=== PATIENT | female | born 1985 | race Caucasian/White ===

== ENCOUNTER 2017-07-22 13:45 | Emergency (ER) | payer BC, SELFPAY ==
[2017-07-22 13:46] VITALS: BP 135/74; PULSE 121; RESP 18; TEMP 36.6; O2SAT 99; BMI 25.6
--- NOTE | 2017-07-22 14:17 | ED.DCSUM_ITS ---
- ER Visit Summary Date of Service: 07/22/17 Chief Complaint: Constipation History of Present Illness: The patient is a 32 F presenting with constipation. Patient states she has been unable to have a bowel movement ?6 days. She has tried MiraLAX at home with no relief. She has nausea without vomiting. She complains of left-sided abdominal pain. Denies possibility of . She has had no fever. Denies urinary complaints. Denies other complaints. Physical Examination: Vitals are stable. Patient is afebrile. Alert no acute distress. HEENT exam is unremarkable. Neck is supple. Lungs are clear and equal bilaterally. Heart is regular rate and rhythm. Abdomen is soft mild left lower quadrant tenderness, no rebound or guarding Extremities are unremarkable. Skin is warm and dry. No focal neurologic deficit. Remainder of exam is unremarkable. Emergency Department Course and Treatment: KUB: Normal x-ray examination of the abdomen and pelvis. Patient was given a soap suds enema and had a small bowel movement. She is advised to continue Miralax. On repeat abdominal exam, she continues to have LLQ tenderness with no rebound or guarding. CT abd pelvis was obtained and shows mild pancolitis. She is given prescription for Augmentin. Advised to return to the ED for worsening complaints. Advised to follow up with PCP. Disposition: Discharge home Impression: Constipation, mild pancolitis This note was generated with [employer] dictation software. It may contain incorrect words, spelling, and punctuation that were not noted in review of the chart prior to signing ED Disposition - Plan for ED Patient: Chief Complaint: Constipation Instructions: ED Constipation Referrals: Bev Ross MD [Primary Care Provider] - NOT,DEFINED [NON-STAFF] -
--- NOTE | 2017-07-22 14:26 | RAD_ITS ---
STUDY: X-RAY - ABDOMEN/PELVIS REASON FOR EXAM: Female, 32 years old. Pain and nausea TECHNIQUE: Two AP supine views of the abdomen and pelvis. COMPARISON: None. FINDINGS: Normal visualized lung bases. There is an unremarkable bowel gas pattern. There is no demonstrated free abdominal air. The visualized liver, spleen and kidneys are grossly normal in size and morphology. Normal soft tissue structures. Normal visualized osseous structures. RAD/Abdomen Single View IMPRESSION: Normal x-ray examination of the abdomen and pelvis. Electronically Signed: Melecio Bautista MD at 15:07 EDT , Service support ,
--- NOTE | 2017-07-22 16:05 | ED.DEP ---
ED Disposition - Plan for ED Patient: Chief Complaint: Constipation Instructions: ED Constipation Referrals: NOT,DEFINED [NON-STAFF] - Bev Ross MD [Primary Care Provider] -
--- NOTE | 2017-07-22 16:18 | CT_ITS ---
STUDY: CT ABDOMEN AND PELVIS WITH CONTRAST REASON FOR EXAM: Female, 32 years old. Abdominal pain, constipation x 6 days, nausea. Prior ovarian cyst removal, fallopian tubes removed. RADIATION DOSAGE (If Supplied By Facility): CTDIvol = ( 9.70 ) mGy, DLP = ( 580.19 ) mGycm TECHNIQUE: Transaxial images were obtained from the dome of the diaphragm to the symphysis pubis without oral contrast. 100mL ml of Isovue 300 contrast was administered. Sagittal and coronal images were reconstructed. Individualized dose optimization techniques were used for this CT. COMPARISON: CT Abdomen/Pelvis Feb 12 2016 6:14pm FINDINGS: Right lower lobe scarring. The visualized portions of the heart are within normal limits. Stable hypodensity of the liver. This is in segment 6. Normal gallbladder and extrahepatic biliary system. Normal spleen. Normal pancreas. Normal bilateral adrenal glands. Normal right kidney. Normal left kidney. Normal visualized stomach. Normal small intestine. There is wall thickening of the entire colon. There is also questionable inflammation around the colon. This can suggest a colitis. The appendix is visualized and appears normal. Normal abdominal aorta. Normal inferior vena cava. Normal retroperitoneum. Normal urinary bladder. Normal visualized uterus. There are physiologic follicles of both ovaries. Normal abdominal wall. Normal osseous structures. CT/Abdomen/Pelvis W IV Cont ONLY IMPRESSION: Mild pancolitis. Electronically Signed: Solomon Lomeli MD at 17:40 EDT , Service support ,
[2017-07-22 16:30] VITALS: BP 132/84; PULSE 70; RESP 18; O2SAT 98
[2017-07-22] MEDS: 0.9% Normal Saline 1,000 ML 999 ML IV (16:31)
--- NOTE | 2017-07-22 17:56 | ED.DEP ---
ED Disposition - Plan for ED Patient: Chief Complaint: Constipation Instructions: ED Constipation Prescriptions: Amox/Clavulanate Tablet [Augmentin Tablet] 875 mg PO Q12H #20 tablet Referrals: Bev Ross MD [Primary Care Provider] - NOT,DEFINED [NON-STAFF] -
[2017-07-22 18:04] VITALS: BP 116/88; PULSE 106; RESP 16; O2SAT 99
[2017-07-22] MEDS: Amox/Clavulanate 875 MG Tablet PO (18:04)
== END 2017-07-22 18:07 | disposition home or self-care (01) ==
PROVIDERS: Emergency Provider Emergency Medicine; Family Provider Internal Medicine; PCP Internal Medicine
DX: K51.00 Ulcerative (chronic) pancolitis without complications (principal); K59.00 Constipation, unspecified
CPT/HCPCS: 74018; 74177; 96360; 96361; 99285; J7030; Q9967

== ENCOUNTER 2017-07-23 21:47 | Inpatient (IN) | payer BC, SELFPAY ==
[2017-07-23 21:48] VITALS: BP 119/87; PULSE 120; RESP 15; TEMP 37.5; O2SAT 96; BMI 25.4
--- NOTE | 2017-07-23 21:54 | NURSING ---
CALLED FOR EKG PER PROTOCAL, PULLED OLD EKG'S FOR
--- NOTE | 2017-07-23 22:00 | EKG12_ITS ---
Test Reason : CP Blood Pressure : / mmHG Vent. Rate : 115 BPM Atrial Rate : 115 BPM P-R Int : 122 ms QRS Dur : 084 ms QT Int : 322 ms P-R-T Axes : 080 049 026 degrees QTc Int : 445 ms Sinus tachycardia Nonspecific T wave abnormality Abnormal ECG Confirmed by NEFTALY RAO, SIMONE ([id number]), assignment desk editor DOROTEO LANDIN ([id number] on 07/25/2017 2:38:48 PM Referred By: ADRIEN Confirmed By:SIMONE HIGGINBOTHAM MD
--- NOTE | 2017-07-23 22:11 | ED.VISSUMM ---
- ER Visit Summary Date of Service: 07/23/17 Chief Complaint: Generalized abdominal pain and throbbing chest pain History of Present Illness: The patient is a 32 F who was seen yesterday and diagnosed with pancolitis. She was prescribed Augmentin since she has allergy to levofloxacin. She presents today because of worsening pain. She also complains of a throbbing intermittent pain in her chest. She does command subjective fever with chills. He denies sweats. She denies any ocular, visual auditory symptoms. She denies cough or difficulty breathing. She states she has not had a bowel movement in 7 days. She apparently was given a soapsuds enema. 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 She denies dysuria, frequency, urgency or hematuria. She has no history of renal ureterolithiasis. She states her right and left fallopian tube was removed because of complication to a procedure. She does have 2 children. There is no history of trauma. She denies any back pain. She denies any skin lesions. She denies myalgias arthralgias. Family history is remarkable for inflammatory bowel disorder i.e. Crohn's and ulcerative colitis. There is also strong family history of cholelithiasis. Physical Examination: Patient appears uncomfortable. Vital signs remarkable for heart rate of 120 and temperature 99.5. Head is atraumatic normocephalic. Pupils are equal round reactive. Extraocular muscles are intact. TMs are pearly white with landmarks noted. Nares patent with no drainage. Posterior pharynx without erythema or exudate. Uvula is midline. There is no dysphonia or dysphasia. Tongue and mucosa are dry. Trachea is midline. There is no stridor with auscultation of the neck. Heart is regular without murmur, gallop or rub. S1 and S2 are normal. Lungs are clear to auscultation with good movement of air bilaterally. Abdomen is tender with guarding and mild percussion tenderness. Bowel sounds are diminished. There is slight tympana. There is no CVA tenderness noted. Lower extremity exam is unremarkable. Neuro exam is nonfocal. Test Results: BC is unremarkable. Electric panels marked for CO2 of 10. To evaluate the CO2 of 10 and blood gas and lactate were ordered. Emergency Department Course and Treatment: IV was established she was treated with antiemetic and morphine for her disc comfort and nausea. She received 4.5 g of Zosyn and 1 L of normal saline. Repeat blood work was obtained. Since she was seen yesterday symptoms are worse she will in all likelihood require admission for IV antibiotics. Treatment Plan: Hospitalist Dr. Nunez was paged for admission for failed outpatient therapy of pancolitis Disposition: Admit MedSur Impression: 1. Pancolitis failed outpatient therapy 2. Sinus tachycardia documented on monitor 3. Dehydration This note was generated with [employer] dictation software. It may contain incorrect words, spelling, and punctuation that were not noted in review of the chart prior to signing ED Disposition - Plan for ED Patient: Chief Complaint: Chest Pain Referrals: Bev Ross MD [Primary Care Provider] -
[2017-07-23 22:17] LABS: Hematocrit 44.2 % (37-47); Hemoglobin 14.8 g/dl (12.0-15.0); Mean Corp Hgb Conc 33.5 g/gl (32-36); Mean Corpuscular Hgb 29.5 pg (27.0-32.0); Platelet Count 324 K/mm3 (150-450); RBC Distribution Width CV 12.7 % (11.6-14.6); RBC Distribution Width SD 40.6 fl (35.1-43.9); Red Blood Count 5.02 M/mm3 (4.2-5.4); White Blood Count 9.3 K/mm3 (4.4-11.0)
[2017-07-23 22:21] LABS: Scan Indicated on CBC? Y/N NO
[2017-07-23] MEDS: 0.9% Normal Saline 1,000 ML 1000 ML IV (22:27)
[2017-07-23] MEDS: Ondansetron 4 MG/2 ML Vial IV (22:28)
[2017-07-23] MEDS: Morphine 4 MG/ML Syringe IV (22:29)
[2017-07-23 22:32] LABS: Anion Gap 14 (5-15); BUN 8 mg/dL (7-18); BUN/Creat Ratio 10.4 RATIO (10-20); Calcium,Total 9.1 mg/dL (8.5-10.1); Chloride 111 mmol/L (98-107); Creatinine, Serum 0.77 mg/dL (0.55-1.02); EST Glomerular Filtration Rate 92 mL/min (>60); Est Glom Filt Rate - Afr Amer 111 mL/min (>60); Estimated Creatinine Clearance 77.68 ml/min; Glucose 76 mg/dL (74-106); Potassium 4.1 mmol/L (3.5-5.1); Sodium Level 135 mmol/L (136-145)
--- NOTE | 2017-07-23 22:50 | PCM.HP.STD ---
Problem List (1) Pancolitis Status: Acute (2) Metabolic acidosis Status: Acute (3) Hematemesis with nausea Status: Acute (4) History of pulmonary embolism Status: Resolved (5) Endometriosis Status: Chronic (6) Pneumonia Status: Acute History of Present Illness Date of Admission: 07/23/17 Chief Complaint: Abdominal pain for 2 days The patient is a 32 year old F with history of endometriosis came to ER yesterday with symptoms of abdominal pain. CT abdomen was done and shows mild pancolitis and was sent home on Augmentin. Patient also has fever and chills for last 2 days. She came with worsening abdominal pain, nausea and vomiting 3 times. First one had streak of blood second and third had small amount of blood with clots. Patient did not have bowel movement for 6 days. Patient denies any chronic abdominal pain or abdominal disorder. Her family, especially her father has colitis possible Crohn's disease. He also had polyps. In ED, her basic lab work showed bicarb of 10, chloride 111 and therefore ABG was done which shows pH 7.23. Lactic acid is pending. Past Medical History Past Medical History (Chronic Problems): Chronic Problems Endometriosis (Chronic) Allergies levofloxacin [From Levaquin] Adverse Reaction (Severe, Verified 07/23/17 22:05) Swelling Home Medications: Ambulatory Orders Medication Instructions Recorded Fluticasone 0.05% [Flonase Nasal 2 spray NASAL DAILY 08/16/16 [place]] Amox/Clavulanate Tablet [Augmentin 875 mg PO Q12H #20 tablet 07/22/17 Tablet] Surgical History: - - abcess tonsils, 1 week ago laproscoic surgery to remove fallopien tubes. wisdom teeth removed Smoking Status: Former smoker - *Family History Paternal History Items: - - Colon polyps and possible inflammatory bowel disease/Crohn's disease Review of Systems Constitutional: Reports: Chills, Fever, Weakness, Weight Change HEENT: Denies: Head Aches, Sinus Congestion, Sinus Drainage Cardiovascular: Denies: Chest Pain, Palpitations Respiratory: Denies: Cough, Shortness of breath at rest, Sputum production Gastrointestinal: Reports: Abdominal Pain, Constipation, Hematemesis, Nausea, Vomiting. Denies: Diarrhea, Melena Genitourinary: Denies: Dysuria Musculoskeletal: Denies: Joint Pain, Joint Tenderness Skin: Denies: Rash, Wounds Neurological: Denies: Numbness, Tingling, Focal weakness Psychiatric: Denies: Anxiety, Depression, Homicidal Ideations, Suicidal Ideations Hematologic/ Lymphatic: Denies: Easy Bruising, Easy Bleeding VTE Information - Inpt Only VTE Present on Admission: No VTE Mechan Device Prophylaxis: None VTE Pharm Prophylaxis ordered?: No Reason prophylaxis not ordered:: Procedure Not Indicated Patient Problems: Active and Suspected Problems Pancolitis (Acute) Metabolic acidosis (Acute) Hematemesis with nausea (Acute) - Physical Exam General: Alert, Oriented x3, Cooperative HEENT: Atraumatic, PERRLA, EOMI, Normocephalic Oral: Dry Mucosa Neck: Supple, No JVD, Negative Carotid Bruits Lungs: Clear to auscultation, Normal air movement, No rhonchi, No wheeze Cardiovascular: Regular Rhythm, Normal S1, Normal S2, No murmurs, Tachycardic Abdomen: Bowel Sounds Present, Soft, Hypoactive Bowel Sounds, Guarding - Mild guarding left upper quadrant, Tender Extremities: No edema, Capillary Refill Less than 3 Seconds Skin: No rashes, No breakdown Musculoskeletal: No Tenderness to Palpation of Joints or Extremities Neurological: Cranial nerves II-XII grossly intact Psych/Mental Status: Normal Affect, Appropriate Vital Signs Temp Pulse Resp BP Pulse Ox 99.5 F H 120 H 15 119/87 H 96 07/23/17 21:48 07/23/17 21:48 07/23/17 21:48 07/23/17 21:48 07/23/17 21:48 Oxygen Delivery Method Room Air Weight: 135 lb Body Mass Index (BMI) 25.4 Laboratory Tests Past 24 Hrs 07/23/17 07/23/17 22:11 22:11 WBC 9.3 RBC 5.02 Hgb 14.8 Hct 44.2 MCV 88.0 MCH 29.5 MCHC 33.5 RDW 12.7 RDW Differential 40.6 Plt Count 324 MPV 10.0 Sodium 135 L Potassium 4.1 Chloride 111 H Carbon Dioxide 10.0 L Anion Gap 14 BUN 8 Creatinine 0.77 Estim Creat Clear Calc 77.68 Est GFR (MDRD) Af Amer 111 Est GFR (MDRD) Non-Af 92 BUN/Creatinine Ratio 10.4 Glucose 76 Calcium 9.1 Assessment/Plan Active and Suspected Problems Pancolitis (Acute) Metabolic acidosis (Acute) Hematemesis with nausea (Acute) The patient is a 32 year old F with history of endometriosis came to ER yesterday with symptoms of abdominal pain. CT abdomen was done and shows mild pancolitis and was sent home on Augmentin. She came with worsening abdominal pain, nausea and vomiting 3 times. First wanting had streak of blood second and third had small amount of blood with clots. Patient did not have bowel movement for 6 days. Patient denies any chronic abdominal pain or abdominal disorder. Her family, especially her father has colitis possible Crohn's disease. He also had polyps. In ED, her basic lab work showed bicarb of 10, chloride 111 and therefore ABG was done which shows pH 7.23. Lactic acid is pending. 1. Acute metabolic acidosis most probably secondary to pancolitis: Patient is being admitted in PCU for intense hemodynamic monitoring. IV fluid normal saline 2 L bolus and then 500 bolus and then 125 mL/h. Strict I and O's. Lactic acid. Repeat CMP, PT/INR ordered. Blood cultures ?2, UA and urine culture ordered. 2. Pancolitis: It seems mainly infectious. On IV Zosyn. Patient is allergic to Levaquin. 2. Other comorbidities include history of endometriosis and history of pulmonary embolism: Patient not on any blood thinners. DVT prophylaxis: Patient has a history of hematemesis and left lower pulmonary embolism. Currently patient is having upper GI bleed and so pharmacological prophylaxis contracted. Bilateral SCDs. Laboratory Results 07/23/17 22:11: WBC 9.3, RBC 5.02, Hgb 14.8, Hct 44.2, MCV 88.0, MCH 29.5, MCHC 33.5, RDW 12.7, RDW Differential 40.6, Plt Count 324, MPV 10.0 07/23/17 22:11: Sodium 135 L, Potassium 4.1, Chloride 111 H, Carbon Dioxide 10.0 L, Anion Gap 14, BUN 8, Creatinine 0.77, Estim Creat Clear Calc 77.68, Est GFR (MDRD) Af Amer 111, Est GFR (MDRD) Non-Af 92, BUN/Creatinine Ratio 10.4, Glucose 76, Calcium 9.1 07/23/17 22:54: Specimen Type ART, Sample Site L Radial, pH 7.23 L, Bicarbonate Actual 8.9 L, POC Total CO2 10, Base Excess -19 L, O2 Saturation 97, ABG pCO2 21.4 L, ABG pO2 106 H, Brandt Test POS, O2 Delivery Device Room Air, Blood Gas Notified Whom ED , Blood Gas Notified Time 23007/23/17 23:15: Lactic Acid Pending Code Visit Inpatient E&M: 64091 Init Hosp L3
[2017-07-23 23:00] LABS: Allen Test POS; Base Excess -19 mmol/L (-2 to +2); Bicarbonate 8.9 mmol/L (22-26); Blood Gas Specimen Type ART; O2 Delivery Device Room Air; PO2 106 mmHG (75-100); SITE L Radial; SO2 97 % (95-99); Time Given 2300; Total Carbon Dioxide 10 mmol/L; pCO2 21.4 mmHg (35-45); pH 7.23 (7.35-7.45)
[2017-07-23 23:22] VITALS: BMI 25.4; BMI 25.5
[2017-07-23 23:25] VITALS: BP 126/89; PULSE 99; RESP 21; TEMP 36.9; O2SAT 100
[2017-07-23 23:27] VITALS: BP 126/89; PULSE 99; RESP 21; TEMP 36.9; O2SAT 98
[2017-07-24] VITALS (12 sets, daily range): BP systolic 103–118; BP diastolic 49–76; PULSE 76–100; RESP 16–22; TEMP 36.6–37.2; O2SAT 100
[2017-07-24 00:01] LABS: Lactic Acid 0.9 mmol/L (0.4-2.0)
[2017-07-24 01:24] LABS: International Normalized Ratio 1.2; Prothrombin Time (Protime)PT. 14.8 SECONDS (11.7-14.9)
[2017-07-24 01:25] LABS: Partial Thromboplast Time 36.4 Seconds (24.1-36.2)
[2017-07-24] MEDS: 0.9% Normal Saline 1,000 ML 500 ML IV ×2 (01:49→03:00)
[2017-07-24 02:12] LABS: ALB/GLOB Ratio 1.1 RATIO (0.9-2.4); AST(SGOT) 10 U/L (15-37); Alanine Aminotransfer ALT/SGPT 12 U/L (13-56); Albumin, Serum 3.8 g/dL (3.2-5.0); Alkaline Phosphatase 57 U/L (45-117); Anion Gap 13 (5-15); BUN 6 mg/dL (7-18); BUN/Creat Ratio 8.8 RATIO (10-20); Calcium,Total 8.1 mg/dL (8.5-10.1); Chloride 114 mmol/L (98-107); Creatinine, Serum 0.68 mg/dL (0.55-1.02); EST Glomerular Filtration Rate 105 mL/min (>60); Est Glom Filt Rate - Afr Amer 127 mL/min (>60); Estimated Creatinine Clearance 87.97 ml/min; Globulin 3.5 g/dL (2.2-4.2); Glucose 65 mg/dL (74-106); Lipase 113 U/L (73-393); Magnesium 1.6 mg/dL (1.6-2.6); Potassium 4.2 mmol/L (3.5-5.1); Protein, Total 7.3 g/dL (6.4-8.2); Sodium Level 137 mmol/L (136-145)
[2017-07-24 02:13] LABS: Bacteria 0 SEEN /hpf (None Seen); Mucous, Urine 0 SEEN /hpf (<or=2+); Red Blood Cells-Urine 0 SEEN /hpf (0-5); White Blood Cells 0 SEEN /hpf (0-5)
[2017-07-24 03:44] LABS: Color, Urine Straw (Yellow); Glucose, Dipstick Normal (Normal); Leukocyte Esterase-Dipstick Negative /ul (Negative); Nitrite-Dipstick Negative (Negative); Occult Blood-Urine Negative /ul (Negative); Protein-Dipstick Negative (Negative); Urine Bilirubin Dipstick Negative (Negative); Urine Clarity Clear (Clear); Urine Urobilinogen Normal (Normal)
[2017-07-24 04:01] LABS: Ketone-Dipstick 150 mg/dl (Negative)
[2017-07-24 04:11] LABS: Squamous Epithelial Cells - UA 5-10 SEEN /hpf (5-10)
[2017-07-24] MEDS: Ondansetron 4 MG/2 ML Vial IV (05:06)
[2017-07-24] MEDS: 0.9% Normal Saline 1,000 ML 150 ML IV ×2 (05:06→09:47)
[2017-07-24] MEDS: Piperacil/Tazobactam 3.375 GM/50 ML ML IV (05:17)
[2017-07-24 05:46] LABS: Hematocrit 35.2 % (37-47); Hemoglobin 11.9 g/dl (12.0-15.0); Mean Corp Hgb Conc 33.8 g/gl (32-36); Mean Corpuscular Hgb 30.2 pg (27.0-32.0); Mean Corpuscular Volume 89.3 fL (81-99); Mean Platelet Vol. 10.1 fl (6.2-12.0); Platelet Count 265 K/mm3 (150-450); RBC Distribution Width CV 12.6 % (11.6-14.6); RBC Distribution Width SD 40.8 fl (35.1-43.9); Red Blood Count 3.94 M/mm3 (4.2-5.4)
[2017-07-24 05:51] LABS: Scan Indicated on CBC? Y/N NO
--- NOTE | 2017-07-24 08:41 | CASEMGMT ---
According to [facility] website, the following are in-network tertiary facilities: [facility], [place], , [place], [facility], [facility], [facility], and . Marcos CHONG CM
--- NOTE | 2017-07-24 08:59 | PCM.DC ---
- Discharge Diagnoses Current Active Problems: Current Active and Chronic Problems Pancolitis (Acute) Metabolic acidosis (Acute) Hematemesis with nausea (Acute) Reason(s) for Visit for Discharge Instructions: Abdominal pain, nausea, vomiting Allergies/Adverse Reactions: [facility] Adverse Reaction (Severe, Verified 07/23/17 22:05) Swelling Medications to take at Discharge Fluticasone 0.05% [Flonase Nasal [place]] 2 spray NASAL DAILY 08/16/16 Amox/Clavulanate Tablet [Augmentin Tablet] 875 mg PO Q12H #20 tablet 07/22/17 Primary Care Physician: Bev Ross MD [Primary Care Provider] - Proposed Discharge Date: 07/24/17
--- NOTE | 2017-07-24 09:01 | DS.PCM_ITS ---
Discharge Date and Diagnosis Date of Admission: 07/23/17 Date of Discharge: 07/24/17 - Primary Discharge Diagnosis Active and Suspected Problems Pancolitis (Acute) Metabolic acidosis (Acute) Hematemesis with nausea (Acute) - Secondary Discharge Diagnosis Chronic Problems Endometriosis (Chronic) Hospital Course and Treatment General surgery Operations: None Procedures: None Summary of Care Provided: The patient is a 32 year old F with past medical history of endometriosis comes in to the hospital with complaints of generalized abdominal pain and nausea and vomiting as well as hematemesis. Patient has a positive family history of Crohn 's disease in her father. Patient was seen in the ED earlier on and diagnosed with mild pancolitis and discharged on Augmentin. She was unable to keep down any food and had associated fever and chills. She was admitted to the hospital , managed conservatively with IV fluids and IV PPI as well as IV zosyn. General surgery was consulted and recommended transfer to a facility as we did not have any gastroenterology in-house. She was accepted by [facility] and subsequently transferred. Discharge Diet: No Restrictions Discharge Activity: Return to Normal Activity Home Medications: Medications to take at Discharge Fluticasone 0.05% [Flonase Nasal [place]] 2 spray NASAL DAILY 08/16/16 Amox/Clavulanate Tablet [Augmentin Tablet] 875 mg PO Q12H #20 tablet 07/22/17 Primary Care Physician: Bev Ross MD [Primary Care Provider] - Disposition: Acute care Hospital Minutes spent on discharge:: 50 Patient Condition:: Stable Medical Necessity - Tobacco Use Smoking Status: Former smoker Tobacco Use: Secondhand Meaningful Use Info Meaningful Use Diagnoses (Choose all that apply): None applicable Code Visit Inpatient E&M: 25930 Disch Hosp
== END 2017-07-24 10:56 | disposition other institution (70) | DRG 386 ==
LOC: ED 22:07 → MS3 23:02 → PCU 23:24
PROVIDERS: Admitting Provider Internal Medicine; Emergency Provider Emergency Medicine; Family Provider Internal Medicine; PCP Internal Medicine; Visit Provider Internal Medicine
DX: K51.018 Ulcerative (chronic) pancolitis with other complication (principal); K92.0 Hematemesis; E87.2 Acidosis; E86.0 Dehydration; Z87.891 Personal history of nicotine dependence; Z79.2 Long term (current) use of antibiotics; Z86.711 Personal history of pulmonary embolism; R00.0 Tachycardia, unspecified; N80.9 Endometriosis, unspecified
CPT/HCPCS: 36415; 36600; 80048; 80053; 81001; 82803; 83605; 83690; 83735; 85027; 85610; 85730; 87040; 87086; 93005; 99285; J7030; J7040; A4216; J2405

== ENCOUNTER 2018-05-05 14:10 | Emergency (ER) | payer BC, SELFPAY ==
[2018-05-05 14:11] VITALS: BP 124/79; PULSE 112; RESP 20; TEMP 37.3; O2SAT 99; BMI 19.3
[2018-05-05 14:28] VITALS: BP 135/61; PULSE 114; RESP 18; O2SAT 99
--- NOTE | 2018-05-05 14:41 | EKG12_ITS ---
Test Reason : COUGH Blood Pressure : / mmHG Vent. Rate : 099 BPM Atrial Rate : 099 BPM P-R Int : 124 ms QRS Dur : 088 ms QT Int : 348 ms P-R-T Axes : 080 040 048 degrees QTc Int : 446 ms Normal sinus rhythm Normal ECG Confirmed by SIMONE HIGGINBOTHAM MD ([id number]), editor greeting card DOROTEO LANDIN ([id number]) on 05/08/2018 8:28:40 AM Referred By: ERIC Confirmed By:SIMONE HIGGINBOTHAM MD
--- NOTE | 2018-05-05 14:41 | RAD_ITS ---
STUDY: X-RAY CHEST REASON FOR EXAM: Female, 33 years old. Shortness of breath positive flu test. TECHNIQUE: PA and lateral views of the chest. COMPARISON: March 07, 2016 chest x-ray FINDINGS: There is nonspecific hyperinflation of the lungs. There is no demonstrated pleural abnormality. Normal size heart. Normal mediastinum and [place]. Normal visualized pulmonary arteries. Normal visualized aortic arch and descending thoracic aorta. Normal visualized thoracic spine. Normal visualized ribs, clavicles, and shoulders. There is no demonstrated abnormality of the visualized soft tissue structures of the upper abdomen. RAD/Chest PA and Lateral IMPRESSION: Nonspecific hyperinflation of the lungs no evidence of acute focal infiltrate. Electronically Signed: Yisel Schroeder MD at 15:25 EST Tel , Service support ,
--- NOTE | 2018-05-05 14:45 | ED.DCSUM_ITS ---
- ER Visit Summary Date of Service: 05/05/18 Chief Complaint: Vomiting and chest burning History of Present Illness: The patient is a 33 F diagnosed with influenza yesterday who presents for vomiting with blood and chest burning. Patient states she began feeling unwell 1 week ago, with fever, cough, body aches, headache and respiratory-like symptoms. For the last 2 days she has been having a burning sensation in her chest, both sides in the upper chest. She also has felt short of breath. Patient was evaluated by her family doctor and diagnosed with influenza. She was prescribed Tamiflu but had not started it yet. She began vomiting last night, and states she has vomited approximately 10 times. For the last several episodes of emesis, patient has noted blood clots or blood streaking in the emesis. She denies urinary symptoms, diarrhea. She does have a history of a pulmonary embolism that occurred after a fallopian tube surgery a few years ago. Physical Examination: Vital signs: afebrile, hemodynamically stable, no hypoxia on room air General: well nourished, well developed, in no distress Skin: warm, dry, no rash, no pallor HEENT: normocephalic and atraumatic; PERRL, EOMI, moist mucous membranes Cardiovascular: Tachycardic rate and rhythm without murmurs, no peripheral edema, 2+ pulses all distal extremities Respiratory: No increased work of breathing but increased discomfort with deep breath, lungs are clear to auscultation bilaterally, no rales, rhonchi or wheezing Abdominal: Abdomen is soft, left upper quadrant is mildly tender with normoactive bowel sounds, no guarding or rebound, no masses MSK: Moves all extremities, no deformities, normal strength Neuro: Awake and alert, oriented ?4. No facial droop, sensation and motor function intact and symmetric Test Results: Abnormal Lab Results 05/05/18 05/05/18 05/05/18 14:52 14:52 14:52 WBC 2.6 L RBC 5.01 Hgb 14.9 Hct 44.4 MCV 88.6 MCH 29.7 MCHC 33.6 RDW 13.0 RDW Differential 42.2 Plt Count 194 MPV 9.6 Immature Gran % (Auto) 0.000 Neut % (Auto) 68.8 Lymph % (Auto) 12.9 L Hardeman % (Auto) 17.9 H Eos % (Auto) 0.0 Baso % (Auto) 0.4 Absolute Neuts (auto) 1.8 L Absolute Lymphs (auto) 0.34 L Total Counted Not Reportable Differential Comment Diff Path Review May foll Platelet Estimate ADEQUATE RBC Morphology NORM C+C D-Dimer Quant (PE/DVT) 0.29 Sodium 138 Potassium 3.7 Chloride 108 H Carbon Dioxide 15.0 L Anion Gap 15 BUN 10 Creatinine 0.67 Estim Creat Clear Calc 85.60 Est GFR (MDRD) Af Amer 129 Est GFR (MDRD) Non-Af 107 BUN/Creatinine Ratio 15.0 Glucose 78 Calcium 8.3 L Total Bilirubin 0.40 AST 26 ALT 25 Alkaline Phosphatase 60 Troponin I < 0.015 Total Protein 7.9 Albumin 4.0 Globulin 3.9 Albumin/Globulin Ratio 1.0 Lipase 59 L Clinical Impression(s) from Imaging Studies Chest X-Ray 05/05/18 14:41 IMPRESSION: Nonspecific hyperinflation of the lungs no evidence of acute focal infiltrate. Electronically Signed: Yisel Schroeder MD at 15:25 EST Tel , Service support , Medications Given Discontinued Medications Albuterol/Ipratropium (Duoneb) 3 ml INHALATION X1 ONE Stop: 05/05/18 15:49 Sodium Chloride () 1,000 mls @ 1,000 mls/hr IV .Q1H ONE Stop: 05/05/18 15:39 Last Admin: 05/05/18 14:58 Dose: 1,000 mls/hr Ketorolac Tromethamine (Toradol) 15 mg IV X1 ONE Stop: 05/05/18 14:41 Last Admin: 05/05/18 14:58 Dose: 15 mg Ondansetron HCl (Zofran) 4 mg IV X1 ONE Stop: 05/05/18 14:41 Last Admin: 05/05/18 14:58 Dose: 4 mg Emergency Department Course and Treatment: Patient presents for vomiting with some blood in the emesis since last night. Patient states the blood was not in the initial emesis, and she has had no purely bloody emesis. This sounds more consistent with a Aleah-Conroy tear rather than a daniel GI bleed. Because patient has the chest burning in the shortness of breath with flu, chest x-ray was performed to evaluate for pneumonia. D-dimer included given the history of pulmonary embolism. Patient is moderate risk for Wells criteria and thus d- dimer evaluation is appropriate. D-dimer was within normal limits. Labs showed a white count of 2.6, no neutrophil predominance, no electrolyte derangements. Chest x-ray showed no sign of pneumonia. Patient received IV fluids, Zofran and Toradol for symptomatic relief. On reevaluation patient states she is comfortable, has had no further nausea or vomiting, and the chest discomfort is mostly relieved with the medicine. Patient given one duoneb to see if it helps with subjective. respiratory effort and cough. Discussed that since patient has been sick for multiple days, starting Tamiflu at this point would be very unlikely to help, and would likely make her nausea and vomiting worse. Patient agreed and will not take the Tamiflu. Patient states she felt much better after the breathing treatment and this is the most comfortable she has been since she got sick last weekend. Patient was given a prescription for albuterol inhaler, Tessalon Perles for cough, and Zofran for any further nausea or vomiting. She has not had any episodes of emesis in the emergency department and no hematemesis. Patient will return if any further concerns. Discharged home in improved condition. Treatment Plan: [] Disposition: [] Impression: Influenza This note was generated with [employer] dictation software. It may contain incorrect words, spelling, and punctuation that were not noted in review of the chart prior to signing ED Disposition - Plan for ED Patient: Prescriptions: Albuterol Inhaler [Ventolin Hfa] 2 puff INHALATION Q4H PRN PRN #1 inhaler PRN Reason: Wheezing Ondansetron [Zofran Odt] 4 mg PO Q8H PRN PRN #10 tab PRN Reason: Nausea Benzonatate [Tessalon Perle] 100 mg PO TID PRN PRN #20 cap PRN Reason: Cough Referrals: Bev Ross MD [STAFF PHYSICIAN] -
[2018-05-05] MEDS: Ketorolac 15 MG/ML Vial IV (14:58)
[2018-05-05] MEDS: Ondansetron 4 MG/2 ML Vial IV (14:58)
[2018-05-05] MEDS: 0.9% Normal Saline 1,000 ML 1000 ML IV (14:58)
[2018-05-05 15:04] LABS: Absolute Lymphocyte Count 0.34 X10^3/ul (0.83-4.51); Absolute Neutrophil Count 1.8 X10^3/uL (2.0-7.7); Basophil# 0.01 X10^3/uL; Basophil% 0.4 % (0-1); Hematocrit 44.4 % (37-47); Hemoglobin 14.9 g/dl (12.0-15.0); Lymphocyte # 0.34 X10^3/ul (4.0); Lymphocyte % 12.9 % (19-41); Mean Corp Hgb Conc 33.6 g/gl (32-36); Mean Corpuscular Hgb 29.7 pg (27.0-32.0); Mean Corpuscular Volume 88.6 fL (81-99); Mean Platelet Vol. 9.6 fl (6.2-12.0); Monocyte# 0.47 X10^3/uL; Monocyte% 17.9 % (0-10); Neutrophil # 1.81 X10^3/uL (2.7-7.7); Neutrophil % 68.8 % (47-70); Platelet Count 194 K/mm3 (150-450); RBC Distribution Width SD 42.2 fl (35.1-43.9); Red Blood Count 5.01 M/mm3 (4.2-5.4); White Blood Count 2.6 K/mm3 (4.4-11.0)
[2018-05-05 15:06] LABS: Differential Indicated SCAN CRITERIA MET; POSITIVE COUNT NO; POSITIVE DIFFERENTIAL YES; POSITIVE MORPHOLOGY NO
[2018-05-05 15:21] LABS: Platelet Estimate ADEQUATE (ADEQ); Red Cell Morphology NORM C+C NORMAL (NORM C&C)
[2018-05-05 15:29] LABS: AST(SGOT) 26 U/L (15-37); Alanine Aminotransfer ALT/SGPT 25 U/L (13-56); Alkaline Phosphatase 60 U/L (45-117); Anion Gap 15 (5-15); BUN 10 mg/dL (7-18); Calcium,Total 8.3 mg/dL (8.5-10.1); Chloride 108 mmol/L (98-107); Creatinine, Serum 0.67 mg/dL (0.55-1.02); EST Glomerular Filtration Rate 107 mL/min (>60); Est Glom Filt Rate - Afr Amer 129 mL/min (>60); Globulin 3.9 g/dL (2.2-4.2); Glucose 78 mg/dL (74-106); Lipase 59 U/L (73-393); Potassium 3.7 mmol/L (3.5-5.1); Protein, Total 7.9 g/dL (6.4-8.2); Sodium Level 138 mmol/L (136-145)
[2018-05-05 15:37] LABS: D-Dimer Quantitative (DVT/PE) 0.29 FEU/ug/m (0.27-0.49)
[2018-05-05 16:04] VITALS: PULSE 100; RESP 16
[2018-05-05] MEDS: Ipratropium/Albuterol Sulfate 3 ML AMPUL.NEB INHALATION (16:04)
--- NOTE | 2018-05-05 16:35 | ED.DEP ---
ED Disposition - Plan for ED Patient: Disposition: Home or Assisted Living Instructions: ED Flu Prescriptions: Albuterol Inhaler [Ventolin Hfa] 2 puff INHALATION Q4H PRN PRN #1 inhaler PRN Reason: Wheezing Ondansetron [Zofran Odt] 4 mg PO Q8H PRN PRN #10 tab PRN Reason: Nausea Benzonatate [Tessalon Perle] 100 mg PO TID PRN PRN #20 cap PRN Reason: Cough Referrals: Bev Ross MD [STAFF PHYSICIAN] - 3-5 Days if not improving Additional Instructions: Use the ondansetron as needed for nausea or vomiting. Use the albuterol as needed for wheezing and cough. The Tessalon Perles also will help with cough. Do not take the Tamiflu, as it is highly unlikely to help at this point and frequently causes nausea and vomiting. If you have any worsening of your condition or any new concerning symptoms, please return immediately to the emergency department for another evaluation.
[2018-05-05 16:45] VITALS: BP 136/96; PULSE 100; RESP 18; O2SAT 99
--- NOTE | 2018-05-05 16:45 | ED.RN ---
IV DC'ED, CATHETER INTACT, SMALL GAUZE DRESSING PLACED. DISCHARGE INSTRUCTIONS GIVEN TO AND REVIEWED WITH PATIENT, PATIENT DENIES QUESTIONS OR CONCERNS AND VOICES UNDERSTANDING OF DISCHARGE INSTRUCTIONS. PT AMBULATES OUT OF ROOM WITHOUT DIFFICULTY.
[2018-05-07 13:54] LABS: Pathologist Review Reviewed
== END 2018-05-05 17:09 | disposition home or self-care (01) ==
PROVIDERS: Emergency Provider Emergency Medicine; Family Provider Family Medicine; PCP Family Medicine
DX: J11.1 Influenza due to unidentified influenza virus with other respiratory manifestations (principal); Z86.711 Personal history of pulmonary embolism; Z87.01 Personal history of pneumonia (recurrent)
CPT/HCPCS: 71046; 80053; 83690; 84484; 85025; 85379; 93005; 94640; 96361; 96374; 96375; 99284; J7030; A4216; J2405

== ENCOUNTER 2018-05-07 12:23 | Emergency (ER) | payer BC, SELFPAY ==
[2018-05-07 12:24] VITALS: BP 145/76; PULSE 108; RESP 16; TEMP 37.3; O2SAT 99; BMI 19.0
[2018-05-07 12:32] VITALS: TEMP 37.3
--- NOTE | 2018-05-07 12:42 | RAD_ITS ---
STUDY: X-RAY CHEST REASON FOR EXAM: Female, 33 years old. 4 day history of productive cough and generalized illness. TECHNIQUE: PA and lateral views of the chest. COMPARISON: Comparison is made with prior study dated May 05, 1999. FINDINGS: Hyperinflation. Scattered calcified granulomas. The lungs are clear. There is no demonstrated pleural abnormality. Normal size heart. Normal mediastinum and kaleigh. Normal visualized pulmonary arteries. Normal visualized aortic arch and descending thoracic aorta. Normal visualized thoracic spine. Normal visualized ribs, clavicles, and shoulders. There is no demonstrated abnormality of the visualized soft tissue structures of the upper abdomen. RAD/Chest PA and Lateral IMPRESSION: Hyperinflation. No acute abnormality is seen. Electronically Signed: Ramo Sheridan MD at 13:37 EST , Service support ,
--- NOTE | 2018-05-07 12:45 | ED.VISSUMM ---
- ER Visit Summary Date of Service: 05/07/18 Chief Complaint: Cough History of Present Illness: The patient is a 33 F past medical history endometriosis and reflux. States she was diagnosed with influenza on Monday by her primary care physician. She is now had a productive cough of greenish sputum. Developed nausea, vomiting diarrhea states she feels dehydrated. Fevers been as high as 101. No dysuria. Physical Examination: Well-appearing 33-year-old female. No acute distress. Vital signs are stable. Temperature 99. She does not look septic or toxic. She looks mildly dehydrated. HEENT exam TMs normal. Posterior pharynx without erythema or exudate. Mildly dry mucous membranes. Neck nontender no lymphadenopathy. Lungs clear to auscultation bilaterally. Dry cough. Heart regular rhythm rate about 110 no murmur. Abdomen is soft and nontender. Normal bowel sounds no peritoneal signs. Nondistended. She is moving all 4 extremities. They are neurovascularly intact. Neurologically she is awake alert with no focal motor deficits. Test Results: Chest x-ray 2 views show no acute abnormality. No infiltrate. Emergency Department Course and Treatment: Patient treated with a liter normal saline. IV Zofran. P.o. fluid challenge. Repeat exam patient is doing well. Will be discharged to home. Treatment Plan: Fluids and rest. Zofran as needed for nausea which she has at home. Follow-up with not improving. Disposition: Discharge Impression: Acute viral syndrome Mild dehydration This note was generated with [employer] dictation software. It may contain incorrect words, spelling, and punctuation that were not noted in review of the chart prior to signing ED Disposition - Plan for ED Patient: Referrals: Carlos Villareal MD [Primary Care Provider] -
[2018-05-07] MEDS: Ondansetron 4 MG/2 ML Vial IV (12:57)
[2018-05-07] MEDS: 0.9% Normal Saline 1,000 ML 1000 ML IV (12:57)
--- NOTE | 2018-05-07 13:24 | ED.DEP ---
ED Disposition - Plan for ED Patient: Disposition: Home or Assisted Living Instructions: ED Viral Syndrome Referrals: Carlos Villareal MD [Primary Care Provider] - 3-5 Days if not improving Additional Instructions: Plenty of fluids and rest. Your home Zofran as needed for nausea. Follow-up with not improving. Her chest x-ray was normal. No signs of pneumonia.
[2018-05-07 13:39] VITALS: TEMP 37.2
[2018-05-07] MEDS: proMETHazine 25 MG/ML Syringe 12.5 MG IV (13:40)
== END 2018-05-07 14:05 | disposition home or self-care (01) ==
PROVIDERS: Emergency Provider Emergency Medicine; Family Provider Family Medicine; PCP Family Medicine
DX: B34.9 Viral infection, unspecified (principal); E86.0 Dehydration; K21.9 Gastro-esophageal reflux disease without esophagitis; Z79.51 Long term (current) use of inhaled steroids; Z79.899 Other long term (current) drug therapy
CPT/HCPCS: 71046; 96361; 96374; 96375; 99283; J7030; J2405

== ENCOUNTER → 2018-05-22 15:57 | Outpatient (CLI) | payer BC, SELFPAY ==
[2018-05-07 12:24] VITALS: BMI 19.0
[2018-05-22 17:40] LABS: Absolute Lymphocyte Count 2.71 X10^3/ul (0.83-4.51); Absolute Neutrophil Count 2.7 X10^3/uL (2.0-7.7); Basophil# 0.02 X10^3/uL; Basophil% 0.3 % (0-1); Eosinophil# 0.03 X10^3/uL; Eosinophils% 0.5 % (0-5); Hematocrit 41.2 % (37-47); Hemoglobin 14.1 g/dl (12.0-15.0); Lymphocyte # 2.71 X10^3/ul (4.0); Lymphocyte % 45.5 % (19-41); Mean Corp Hgb Conc 34.2 g/gl (32-36); Mean Corpuscular Hgb 29.8 pg (27.0-32.0); Mean Corpuscular Volume 87.1 fL (81-99); Mean Platelet Vol. 11.6 fl (6.2-12.0); Monocyte# 0.53 X10^3/uL; Monocyte% 8.9 % (0-10); Neutrophil # 2.66 X10^3/uL (2.7-7.7); Neutrophil % 44.6 % (47-70); POSITIVE COUNT NO; POSITIVE DIFFERENTIAL NO; POSITIVE MORPHOLOGY NO; Platelet Count 350 K/mm3 (150-450); RBC Distribution Width CV 12.9 % (11.6-14.6); RBC Distribution Width SD 39.8 fl (35.1-43.9); Red Blood Count 4.73 M/mm3 (4.2-5.4)
[2018-05-22 17:57] LABS: Hemoglobin A1c 5.3 % (4.2-6.3)
[2018-05-22 18:10] LABS: ALB/GLOB Ratio 1.2 RATIO (0.9-2.4); AST(SGOT) 15 U/L (15-37); Alanine Aminotransfer ALT/SGPT 22 U/L (13-56); Albumin, Serum 4.4 g/dL (3.2-5.0); Alkaline Phosphatase 56 U/L (45-117); Anion Gap 18 (5-15); BUN 9 mg/dL (7-18); BUN/Creat Ratio 10.4 RATIO (10-20); Calcium,Total 9.2 mg/dL (8.5-10.1); Chloride 104 mmol/L (98-107); Creatinine, Serum 0.87 mg/dL (0.55-1.02); EST Glomerular Filtration Rate 79 mL/min (>60); Est Glom Filt Rate - Afr Amer 96 mL/min (>60); Globulin 3.6 g/dL (2.2-4.2); Glucose 83 mg/dL (74-106); Potassium 3.6 mmol/L (3.5-5.1); Prealbumin 18.7 mg/dL (20.0-40.0); Sodium Level 140 mmol/L (136-145); T4 Free Direct 1.29 ng/dL (0.76-1.46); Thyroid Stim Hormone (TSH) 2.04 uIU/mL (0.358-3.74)
[2018-05-22 18:12] LABS: Amphetamine Urine VISTA NEGATIVE (<1000 ng/mL); Barbiturate Urine VISTA NEGATIVE (< 200 ng/mL); Benzodiazepine Urine VISTA NEGATIVE (< 200 ng/mL); Cocaine Urine VISTA NEGATIVE (< 300 ng/mL); Ecstacy Urine VISTA NEGATIVE (< 500 ng/mL); Methadone Urine VISTA NEGATIVE (< 300 ng/mL); PCP Urine VISTA NEGATIVE (< 25 ng/mL); THC Urine VISTA POSITIVE (< 50 ng/mL); Vista UDS pH Range 5
[2018-05-22 18:17] LABS: Vitamin B12 898 pg/mL (211-911); Vitamin D,25 Hydroxy 19.1 ng/mL (29.95-100.01)
[2018-05-24 20:28] LABS: Endomysial Antibody IgA Negative (Negative)
[2018-05-25 10:02] LABS: Immunoglobulin A 300 mg/dL (87-352); t-Transglutaminase IgA <2 U/mL (0-3)
== END ==
PROVIDERS: Family Provider Family Medicine; PCP Family Medicine; Referring Provider Family Medicine; Visit Provider Family Medicine
DX: R63.4 Abnormal weight loss (principal); R35.8 Other polyuria; R53.83 Other fatigue
CPT/HCPCS: 36415; 80053; 80307; 82306; 82607; 82784; 83036; 83516; 84134; 84439; 84443; 85025; 86255

== ENCOUNTER → 2018-06-05 15:41 | Outpatient (CLI) | payer BC, SELFPAY ==
[2018-05-07 12:24] VITALS: BMI 19.0
[2018-06-05 17:42] LABS: Prealbumin 30.8 mg/dL (20.0-40.0)
== END ==
PROVIDERS: Family Provider Family Medicine; PCP Family Medicine; Referring Provider Family Medicine; Visit Provider Family Medicine
DX: E44.1 Mild protein-calorie malnutrition (principal)
CPT/HCPCS: 36415; 84134

== ENCOUNTER 2018-06-27 06:20 | Day surgery (SDC) | payer BC, SELFPAY ==
[2018-06-15 10:19] VITALS: BMI 19.0
--- NOTE | 2018-06-21 08:14 | HP_ITS ---
Intake Vital Signs 06/15/18 Body Mass Index (BMI) 19.0 06/15/18 Height 5 ft 1 in 06/15/18 Weight: 112 lb 06/15/18 Body Mass Index (BMI) 21.1 06/15/18 Blood Pressure 117/79 06/15/18 Blood Pressure Location Rt brachial 06/15/18 Blood Pressure Position Sitting 06/15/18 Respiratory Rate 14 06/15/18 Pulse Rate 76 06/15/18 Pulse Source Monitor 06/15/18 Temperature 98.2 F 06/15/18 Temperature Source Oral 06/15/18 Pulse Ox 99 06/15/18 Oxygen Delivery Method room air Intake Visit Reasons: Gastroesophageal reflux disease (GERD) Chief Complaint: abdominal pain, pancolitis [employer] Maintainer Required: No Is patient in pain?: No (LUQ/ epigastric pain comes and goes) Allergies levofloxacin [From Levaquin] Adverse Reaction (Severe, Verified 06/15/18 10:17) Swelling Medications Fluticasone 0.05% [Flonase Nasal [place]] 2 spray NASAL DAILY 08/16/16 [History Confirmed 06/15/18] Albuterol Inhaler [Ventolin Hfa] 2 puff INHALATION Q4H PRN PRN #1 inhaler 05/05/18 [Rx Confirmed 06/15/18] Famotidine 10 mg PO DAILY 05/05/18 [History Confirmed 06/15/18] cholecalciferol (vitamin D3) 50,000 unit capsule 50,000 unit PO QWEEK 06/15/18 [History Confirmed 06/15/18] PFSH Medical History Acid reflux (Acute) LUQ abdominal pain (Acute) Abdominal pain (Acute) SOB (shortness of breath) (Acute) Anxiety (Acute) Fatigue (Acute) Pancolitis (Acute) Metabolic acidosis (Acute) Hematemesis with nausea (Acute) History of pulmonary embolism (Resolved) Endometriosis (Chronic) Pneumonia (Acute) Surgical History Hx of wisdom tooth extraction (Acute) History of incision and drainage (Acute) Hx of bilateral salpingectomy (Acute) Family History Mother Arthritis Hypertension Sister Asthma Father Thyroid disorder Social History Smoking Status: Former smoker second hand exposure: No alcohol intake: never substance use type: does not use caffeine: Yes frequency: does not exercise ROS General General: Yes weight change and fatigue; no appetite, colon cancer, breast cancer or weakness HEENT HEENT: No difficulty swallowing, eye injury, eye surgery, swollen glands or hoarseness Endo Endocrine: No thyroid disease, diabetes mellitus, thyroid cancer, Hair loss, heat intolerance or cold intolerance Skin Skin: No rash or changing moles Musc Musculoskeletal: Yes back problems and joint pain; no arthritis, rheumatoid arthritis or gout Cardio Cardiovascular: No murmur, pacemaker, heart disease, atrial fibrillation, high blood pressure, heart attack, heart stent, palpitations, shortness of breat with exertion or chest pain Psych Psychiatric: Yes anxiety; no depression or hearing voices Resp Respiratory: Yes shortness of breath, No sleep apnea, Yes cough, No COPD, No asthma, No emphysema, No wheezing Gastro Gastrointestinal: Yes abdominal pain (epigastric/ LUQ sometimes), No nausea or vomiting, No diarrhea, No constipation, No blood in stool, Yes acid reflux, No hemorrhoids, No ulcers, No gallbladder problem, No black,tarry stools Ish Hematologic: No blood thinners, No blood disorders, No bleeding, No anemia, Yes blood clots Neuro Neurologic: No system reviewed and no additional complaints, except as docu, No as per HPI, No abnormal walking, No abnormal hearing, No abnormal movements, No abnormal speech, No behavioral changes, No burning sensations, No confusion, No seizure-like activity, No unsteadiness, No dizziness, No localized weakness, No frequent falls, No headache(s), No lack of coordination, No loss of vision, No memory loss, No numbness, No other visual disturbances, No radiating pain, No restless legs, No sensory deficit, No fainting, No tingling, No tremor(s), No weakness, No other Exam Const General: no acute distress, well developed, well hydrated Orientation: oriented to person, oriented to place, oriented to time [facility] Head: normocephalic, atraumatic Ears: external ears normal Mouth: moist mucous membranes Eyes Sclera: sclerae normal Pupils: normal by confrontation Neck Neck: no lymphadenopathy noted Neck mass: No Thyroid: thyroid normal, symmetrical Chest Chest palpation & inspection: normal inspection of the chest Resp Effort & Inspection: normal respiratory effort Auscultation: clear to auscultation bilaterally Percussion: percussion normal Cardio Rate: regular rate Rhythm: regular rhythm Heart Sounds: no murmurs GI Palpation: soft, no hepatosplenomegaly, no masses, nontender Rectal Exam: other Other: Rectal exam deferred. Extrem General: normal to inspection, no clubbing, cyanosis or edema Assessment & Plan 1. Gastroesophageal reflux disease without esophagitis K21.9 Plan I have discussed the above with the patient. I have offered the patient esophagogastroduodenoscopy with 48-hour pH for evaluation. I have explained the risks/benefits of the procedure and described the procedure. I have discussed the risks with the patient, including but not limited to: infection, bleeding, perforation of the GI tract requiring emergency surgery, inability to complete the procedure, injury to any internal organs, complications of anesthesia, etc. - the patient understands and agrees to proceed. I have answered all the patient's questions to the patient's satisfaction and the patient has no further questions. The patient has been given instructions for the colon cleansing preparation. Patient understands that she will have to be off all of her acid suppression medications for 1 week prior to the procedure. Coding Level of Care Code Off vis,new,level 3 Diagnoses Gastroesophageal reflux disease without esophagitis K21.9 ??Esophagitis presence: without esophagitis
[2018-06-27] VITALS (7 sets, daily range): BP systolic 96–121; BP diastolic 71–89; PULSE 70–92; RESP 14–16; TEMP 36.7–37.8; O2SAT 97–100; BMI 21.1
--- NOTE | 2018-06-27 07:45 | OP.ENDO_ITS ---
06/27/2018 Carlos Villareal [address] [place] [address] Re : Upper GI endoscopy procedure for [place] Dear Dr. Villareal This procedure was performed on Wednesday, June 27, 2018. My impressions and recommendations are as follows: Impressions : - Normal esophagus. No specimens collected. - Z-line regular, 40 cm from the incisors. - Normal stomach. No specimens collected. - Normal examined duodenum. No specimens collected. - An esophageal pH probe catheter was placed. Recommendations : - Discharge patient to home. - Resume previous diet. - Repeat upper endoscopy (date not yet determined) for surveillance. - Return to my office in 1 week. - Continue present medications. My findings are described in the full procedure note, which is enclosed. If I can be of further assistance, please feel free to contact me at Doctor phone number(s): , Fax: [phone], Work: . Sincerely, MD Pawan Osuna MD 06/27/2018 7:44:44 AM This report has been signed electronically.
== END 2018-06-27 08:44 | disposition home or self-care (01) ==
LOC: EN 06:23 → AC 06:23
PROVIDERS: Family Provider Family Medicine; PCP Family Medicine; Referring Provider Surgery; Visit Provider Surgery
PROC: (CPT 43235; principal; 2018-06-27 07:00)
DX: K21.9 Gastro-esophageal reflux disease without esophagitis (principal); F41.9 Anxiety disorder, unspecified; R06.02 Shortness of breath; Z86.711 Personal history of pulmonary embolism; Z87.891 Personal history of nicotine dependence; Z79.899 Other long term (current) drug therapy; Z79.51 Long term (current) use of inhaled steroids
CPT/HCPCS: 43235; 91035; J7120

== ENCOUNTER → 2018-09-11 | Outpatient (CLI) | payer BC, SELFPAY ==
[2018-06-27 07:00] VITALS: BMI 21.1
[2018-09-11 15:36] LABS: Vitamin D,25 Hydroxy 79.3 ng/mL (29.95-100.01)
== END | disposition home or self-care (01) ==
LOC: MFPLAB 11:57
PROVIDERS: Family Provider Family Medicine; PCP Family Medicine; Referring Provider Family Medicine; Visit Provider Family Medicine
DX: E55.9 Vitamin D deficiency, unspecified (principal)
CPT/HCPCS: 36415; 82306

== ENCOUNTER → 2019-05-03 | Outpatient (CLI) | payer BC, SELFPAY ==
[2018-06-27 07:00] VITALS: BMI 21.1
[2019-05-03 16:59] LABS: Vitamin D,25 Hydroxy 33.7 ng/mL (29.95-100.01)
[2019-05-07 06:07] LABS: Alternaria alternata <0.10 kU/L (Class 0); Aspergillus fumigatus <0.10 kU/L (Class 0); Bahia Grass <0.10 kU/L (Class 0); Bermuda Grass <0.10 kU/L (Class 0); Bluegrass, Kentucky <0.10 kU/L (Class 0); Cat Hair/Dander, Standard <0.10 kU/L (Class 0); Cedar, Mountain <0.10 kU/L (Class 0); Cladosporium herbarum <0.10 kU/L (Class 0); Cockroach, American <0.10 kU/L (Class 0); D farinae Mite <0.10 kU/L (Class 0); D pteronyssinus <0.10 kU/L (Class 0); Dog Epithelia <0.10 kU/L (Class 0); Elm, American White <0.10 kU/L (Class 0); Hazelnut Tree <0.10 kU/L (Class 0); Hickory, White <0.10 kU/L (Class 0); Johnson Grass <0.10 kU/L (Class 0); Maple/Box Elder <0.10 kU/L (Class 0); Mucor racemosus <0.10 kU/L (Class 0); Mugwort <0.10 kU/L (Class 0); Mulberry, White <0.10 kU/L (Class 0); Oak, White 0.36 kU/L (Class I); Penicillium chrysogen <0.10 kU/L (Class 0); Pigweed, Rough <0.10 kU/L (Class 0); Plantain, English <0.10 kU/L (Class 0); Ragweed, Short/Common <0.10 kU/L (Class 0); Sheep Sorrel(Dock) <0.10 kU/L (Class 0); Stemphylium herbarum <0.10 kU/L (Class 0); Sweet Gum <0.10 kU/L (Class 0); Sycamore, American <0.10 kU/L (Class 0)
[2019-05-07 17:13] LABS: Nettle <0.10 kU/L (Class 0)
== END | disposition home or self-care (01) ==
LOC: MTLAB 14:40
PROVIDERS: PCP Family Medicine; Referring Provider Family Medicine; Visit Provider Family Medicine
DX: J30.2 Other seasonal allergic rhinitis (principal); E55.9 Vitamin D deficiency, unspecified
CPT/HCPCS: 36415; 82306; 86003

== ENCOUNTER → 2020-01-07 | Outpatient (CLI) | payer BC, SELFPAY ==
[2018-06-27 07:00] VITALS: BMI 21.1
[2020-01-07 18:10] LABS: Vitamin D,25 Hydroxy 37.7 ng/mL
== END | disposition home or self-care (01) ==
LOC: MTLAB 15:45
PROVIDERS: PCP Family Medicine; Referring Provider Family Medicine; Visit Provider Family Medicine
DX: E55.9 Vitamin D deficiency, unspecified (principal)
CPT/HCPCS: 36415; 82306

== ENCOUNTER → 2020-07-23 14:52 | Outpatient (CLI) | payer BC, SELFPAY ==
[2018-06-27 07:00] VITALS: BMI 21.1
[2020-07-23 17:51] LABS: Absolute Lymphocyte Count 2.08 X10^3/uL (0.83-4.51); Absolute Neutrophil Count 7.9 X10^3/uL (2.0-7.7); Basophil# 0.04 X10^3/uL; Basophil% 0.4 % (0-1); Eosinophil# 0.04 X10^3/uL; Eosinophils% 0.4 % (0-5); Hematocrit 41.4 % (37-47); Hemoglobin 13.1 g/dL (12.0-15.0); Lymphocyte # 2.08 X10^3/ul (0.83-4.51); Lymphocyte % 19.1 % (19-41); Mean Corp Hgb Conc 31.6 g/dL (32-36); Mean Corpuscular Hgb 29.2 pg (27.0-32.0); Mean Corpuscular Volume 92.2 fL (81-99); Mean Platelet Vol. 10.6 fl (6.2-12.0); Monocyte# 0.75 X10^3/uL; Monocyte% 6.9 % (0-10); NRBC Flagged by Analyzer 0 % (0-5); Neutrophil # 7.93 X10^3/uL (2.7-7.7); Neutrophil % 72.7 % (47-70); Platelet Count 426 K/mm3 (150-450); RBC Distribution Width CV 12.7 % (11.6-14.6); RBC Distribution Width SD 42.9 fl (35.1-43.9); Red Blood Count 4.49 M/mm3 (4.2-5.4); White Blood Count 10.9 K/mm3 (4.4-11.0)
[2020-07-23 18:12] LABS: Vitamin D,25 Hydroxy 29.3 ng/mL
[2020-07-23 18:14] LABS: ALB/GLOB Ratio 1.1 RATIO (0.9-2.4); AST(SGOT) 15 U/L (15-37); Alanine Aminotransfer ALT/SGPT 20 U/L (13-56); Albumin, Serum 3.9 g/dL (3.2-5.0); Alkaline Phosphatase 72 U/L (45-117); Anion Gap 7 (5-15); BUN 9 mg/dL (7-18); BUN/Creat Ratio 13.8 RATIO (10-20); Calcium,Total 9.1 mg/dL (8.5-10.1); Chloride 105 mmol/L (98-107); Creatinine, Serum 0.65 mg/dL (0.55-1.02); EST Glomerular Filtration Rate 108 mL/min (>60); Est Glom Filt Rate - Afr Amer 131 mL/min (>60); Globulin 3.5 g/dL (2.2-4.2); Glucose 91 mg/dL (74-106); Potassium 3.5 mmol/L (3.5-5.1); Protein, Total 7.4 g/dL (6.4-8.2); Sodium Level 136 mmol/L (136-145)
== END ==
PROVIDERS: PCP Family Medicine; Referring Provider Family Medicine; Visit Provider Family Medicine
DX: K21.9 Gastro-esophageal reflux disease without esophagitis (principal); E55.9 Vitamin D deficiency, unspecified
CPT/HCPCS: 36415; 80053; 82306; 85025

== ENCOUNTER → 2020-09-03 15:38 | Outpatient (CLI) | payer BC, SELFPAY ==
[2018-06-27 07:00] VITALS: BMI 21.1
--- NOTE | 2020-09-03 15:43 | CT_ITS ---
STUDY: CT ABDOMEN AND PELVIS WITH CONTRAST REASON FOR EXAM: Female, 35 years old. LLQ PAIN RADIATION DOSAGE (If Supplied By Facility): CTDIvol = ( 10.16 ) mGy, DLP = ( 712.39 ) mGycm TECHNIQUE: Transaxial images were obtained from the dome of the diaphragm to the symphysis pubis with oral contrast. Oral and amp; IV Breeza Neutral and amp; 100mL Isovue-370 was administered. Sagittal and coronal images were reconstructed. Individualized dose optimization techniques were used for this CT. COMPARISON: Prior abdomen and pelvic CT exam of 07/22/2017 FINDINGS: Stable mild chronic changes at the posterior right lung base. The visualized portions of the heart are within normal limits. 1 subcentimeter simple cyst of the liver. Otherwise normal liver. Normal gallbladder and extrahepatic biliary system. Normal spleen. Normal pancreas. Normal bilateral adrenal glands. Normal right kidney. Normal left kidney. Normal visualized stomach. Normal small intestine. Normal colon. The appendix is visualized and appears normal. Normal abdominal aorta. Normal inferior vena cava. Normal retroperitoneum. Normal urinary bladder. Dominant follicle right ovary. Normal abdominal wall. Normal osseous structures. CT/Abdomen/Pelvis WITH Contrast IMPRESSION: No acute bowel related findings. Negative for obstruction, perforation or inflammatory bowel changes. A normal appendix is identified. Normal kidneys bilaterally without hydronephrosis or stones. Unremarkable urinary bladder. Dominant follicle of the right ovary. Otherwise no pelvic mass or significant free fluid of the pelvis. Subcentimeter cysts of the liver. Otherwise normal liver, spleen and pancreas with a nondistended gallbladder. Electronically Signed: Emelia Nix MD at 19:49 EDT , Service support ,
[2020-09-03 15:54] LABS: Absolute Lymphocyte Count 2.01 X10^3/uL (0.83-4.51); Absolute Neutrophil Count 7.5 X10^3/uL (2.0-7.7); Basophil# 0.04 X10^3/uL; Basophil% 0.4 % (0-1); Eosinophil# 0.01 X10^3/uL; Eosinophils% 0.1 % (0-5); Hemoglobin 14.2 g/dL (12.0-15.0); Lymphocyte # 2.01 X10^3/ul (0.83-4.51); Lymphocyte % 19.5 % (19-41); Mean Corp Hgb Conc 33.8 g/dL (32-36); Mean Corpuscular Hgb 30.4 pg (27.0-32.0); Mean Corpuscular Volume 89.9 fL (81-99); Mean Platelet Vol. 9.6 fl (6.2-12.0); Monocyte# 0.75 X10^3/uL; Monocyte% 7.3 % (0-10); NRBC Flagged by Analyzer 0 % (0-5); Neutrophil # 7.46 X10^3/uL (2.7-7.7); Neutrophil % 72.3 % (47-70); Platelet Count 366 K/mm3 (150-450); RBC Distribution Width CV 13.3 % (11.6-14.6); RBC Distribution Width SD 43.3 fl (35.1-43.9); Red Blood Count 4.67 M/mm3 (4.2-5.4); White Blood Count 10.3 K/mm3 (4.4-11.0)
[2020-09-03 16:16] LABS: ALB/GLOB Ratio 1.1 RATIO (0.9-2.4); AST(SGOT) 13 U/L (15-37); Alanine Aminotransfer ALT/SGPT 16 U/L (13-56); Albumin, Serum 4.1 g/dL (3.2-5.0); Alkaline Phosphatase 78 U/L (45-117); Anion Gap 7 (5-15); BUN 6 mg/dL (7-18); BUN/Creat Ratio 8.7 RATIO (10-20); Calcium,Total 9.3 mg/dL (8.5-10.1); Chloride 110 mmol/L (98-107); Creatinine, Serum 0.69 mg/dL (0.55-1.02); EST Glomerular Filtration Rate 101 mL/min (>60); Est Glom Filt Rate - Afr Amer 122 mL/min (>60); Globulin 3.8 g/dL (2.2-4.2); Glucose 91 mg/dL (74-106); Potassium 3.5 mmol/L (3.5-5.1); Protein, Total 7.9 g/dL (6.4-8.2); Sodium Level 139 mmol/L (136-145)
== END ==
PROVIDERS: PCP Family Medicine; Referring Provider Family Medicine; Visit Provider Family Medicine
DX: R10.32 Left lower quadrant pain (principal)
CPT/HCPCS: 36415; 74177; 80053; 85025; Q9967

== ENCOUNTER 2020-09-10 14:17 | Emergency (ER) | payer BC, SELFPAY ==
[2018-06-27 07:00] VITALS: BMI 21.1
[2020-09-10 14:17] VITALS: BP 131/73; PULSE 95; RESP 14; TEMP 36.7; O2SAT 98; BMI 28.3
--- NOTE | 2020-09-10 14:40 | US_ITS ---
HISTORY: pain, bleeding EXAMINATION: US Transvaginal Non-OB TECHNIQUE: Transvaginal (for optimal evaluation of the adnexa) pelvic ultrasound was performed. Grayscale, spectral waveform, and color flow Doppler evaluation of the adnexa. COMPARISON: CT abdomen and pelvis 09/03/20 FINDINGS: UTERUS: anteverted. The uterus measures 9.0 x 4.6 x 3.9 cm. Small, hypoechoic area in the posterior myometrium consistent with fibroid measuring up to 10 mm. The endometrial stripe measures 7 mm in AP diameter which is within normal limits. Cervical nabothian cyst present. RIGHT OVARY: 3.8 x 2.0 x 1.6 cm. Non-enlarged, normal echogenicity. There is normal arterial inflow and venous outflow present in the right ovary. LEFT OVARY: 2.4 x 1.8 x 1.5 cm. Non-enlarged, normal echogenicity. There is normal arterial inflow and venous outflow present in the left ovary. FREE FLUID: None. US/Transvaginal Non- IMPRESSION: Small uterine fibroid. Otherwise unremarkable pelvic ultrasound. at 1705 Reported and signed by: Torin Grant MD Electronically Signed: Torin Grant MD at 17:04 EDT Tel , Service support ,
--- NOTE | 2020-09-10 14:54 | EDS_ITS ---
HPI HPI - GI History of Present Illness Chief Complaint: Flank Pain Informant: patient and spouse/S.O. Abdominal Pain/Flank Pain Onset: Weeks (1.5) Context: Gradual Onset Timing: Continuous Location: - (Lower abdomen, worse on left) Current Severity: Severe Maximum Severity: Severe Nausea/Vomiting/Emesis GI Symptom: Positive for Nausea; Negative for Vomiting Diarrhea/Melena/Hematochezia GI Symptom: Positive for Diarrhea; Negative for Melena and Hematochezia Onset: Month(s) Stool Quality: Positive for Loose and Mucous Severity: Severe Associated Symptoms Associated Symptoms: Negative for Dysuria, Frequency, Hematuria and Urgency Narrative Narrative: Patient has been having chronically recurring abdominal pain and diarrhea, it is worse in the past 1.5-2 weeks and her doctor obtained an outpatient CT of the abdomen/pelvis for that reason, it was normal/unremarkable, her symptoms have worsened. She thinks it is the same pain but just more worse in severity. The pain radiates into her mid low back, nonlateralizing without any urinary symptoms, she states this was the case when she had the CT done but not nearly to the degree that it is now. She has had laparoscopy in the past when she had issues with tubal ligation, and she was diagnosed with endometriosis incidentally at the time of the laparoscopy. She states usually her cycles are normal and regular, but for the last 3 months they have been very unusual, she states she is bleeding now for several days but mild and brownish. No fevers or chills. Nausea when her pain gets severe, but no vomiting. She sees mucus in her diarrhea no blood, except recently she saw small amounts due to an anal fissure that she was diagnosed with by her PCP. He prescribed nitroglycerin topically but it was declined by insurance so she has been doing sitz baths and applying A&D ointment. [facility] Medical History (Updated 09/10/20 @ 17:[address] Melecio Katz MD) Abdominal pain Acid reflux Anxiety Endometriosis Fatigue Hematemesis with nausea History of pulmonary embolism LUQ abdominal pain Metabolic acidosis Pancolitis Pneumonia SOB (shortness of breath) Home Medications fluticasone propionate 2 spray NASAL DAILY 08/16/16 [History Last Taken Unknown] cholecalciferol (vitamin D3) 1,250 mcg (50,000 unit) capsule 2,000 unit PO DAILY 06/15/18 [History Last Taken Unknown] dicyclomine 20 mg PO 4X/DAY PRN PRN #20 capsule 09/10/20 [Rx Last Taken Unknown] ondansetron 8 mg PO Q8H PRN PRN #20 tab 09/10/20 [Rx Last Taken Unknown] sertraline 25 mg PO DAILY 09/10/20 [History Last Taken Unknown] Allergy/AdvReac Type Severity Reaction Status Date / Time levofloxacin [From Levaquin] AdvReac Severe Swelling Verified 09/10/20 14:21 Family History Mother Arthritis Hypertension Sister Asthma Father Thyroid disorder Surgical History History of incision and drainage Hx of bilateral salpingectomy Hx of wisdom tooth extraction Social History Smoking Status: Former smoker second hand exposure: No alcohol intake: never substance use type: does not use caffeine: Yes frequency: does not exercise ROS ROS ED Constitutional Constitutional ED: Denies chills or fever(s) Eyes Eyes: Denies change in vision or diplopia ENT ENT ED: Denies rhinorrhea or sore throat Cardiovascular Cardiovascular: Denies chest pain or palpitations Respiratory/Chest Respiratory/Chest: Denies cough or dyspnea Gastrointestinal Gastrointestinal: Reports as per HPI, abdominal pain, diarrhea and nausea; Denies vomiting Genitourinary Genitourinary ED: Denies dysuria or hematuria Musculoskeletal Musculoskeletal: Reports back pain; Denies neck pain Integumentary Denies abscess or rash Neurologic Neurologic: Denies headache(s), paresthesias or weakness Psychiatric Psychiatric: Denies anxiety or suicidal thoughts EXAM Physical Exam Const Vital Signs: 09/10/20 14:17 09/10/20 16:33 Temperature 98.1 F Temperature Source Temporal Pulse Rate 95 77 Respiratory Rate 14 16 Blood Pressure 131/73 H 125/90 H Blood Pressure Mean 92 101 Pulse Ox 98 100 Oxygen Delivery Method Room Air Room Air Positive well nourished and well developed General Appearance ED: well developed and NAD HEENT Reports moist mucous membranes normocephalic and atraumatic Eyes PERRL and EOMs intact bilaterally Neck full ROM and supple Resp normal respiratory effort and clear to auscultation bilaterally Cardio regular rate, regular rhythm and no murmurs GI non-distended GI Narrative: Mildly tender left lower quadrant only, no other areas of tenderness Auscultation: normoactive bowel sounds Palpation: soft Back/Spine no CVA tenderness General Back: other FROM Extremity normal to inspection General Extremety ED: Negative for edema, pulses abnormal or tenderness General Extremity: Negative for edema or pulses abnormal Neuro oriented x3, CN's II-XII intact bilaterally and no sensory deficits noted Sensorium / Orientation: awake and alert Motor Exam: strength 5/5 throughout Skin no rashes or lesions noted and no wounds MDM MDM Lab Data Attestation: I reviewed the patient's lab results. Lab results narrative: I suspect the patient's pain is GI in etiology but since she just had a CT that was normal, and with the nature of her complaints, I have obtained a stat ultrasound of her pelvis in order to rule out ovarian torsion and emergent uterine issues. It shows a fibroid but is otherwise unremarkable. The differential here includes intestinal etiologies that are functional, also endometriosis. I discussed all this with her, and the fact that her normal CT does not mean that nothing is wrong. She was treated with Toradol, morphine, Zofran, dicyclomine. She feels much better on reevaluation. She does not have a leukocytosis and I do not think repeating her CT is indicated or necessary. She is being set up for gastroenterology evaluation locally, she does not have the appointment yet. In the meantime I will give her a prescription for dicyclomine and Zofran both to use as needed, we discussed adding [id number] medications as needed and she is comfortable with this plan we discussed reasons to return. Labs: Laboratory Results - last 24 hr 09/10/20 09/10/20 09/10/20 15:17 15:17 15:17 WBC 8.1 RBC 4.61 Hgb 14.0 Hct 41.2 MCV 89.4 MCH 30.4 MCHC 34.0 RDW Std Deviation 41.5 RDW Coeff of Patricia 12.8 Plt Count 406 MPV 9.8 Immature Gran % (Auto) 0.500 Neut % (Auto) 68.6 Lymph % (Auto) 22.5 Power % (Auto) 8.1 Eos % (Auto) 0.1 Baso % (Auto) 0.2 Absolute Neuts (auto) 5.5 Absolute Lymphs (auto) 1.81 Nucleated RBC % 0 Sodium 140 Potassium 3.3 L Chloride 108 H Carbon Dioxide 24.0 Anion Gap 8 BUN 6 L Creatinine 0.64 Estim Creat Clear Calc 90.82 Est GFR (MDRD) Af Amer 133 Est GFR (MDRD) Non-Af 110 BUN/Creatinine Ratio 9.3 L Glucose 97 Calcium 9.3 Total Bilirubin 0.30 AST 15 ALT 17 Alkaline Phosphatase 77 Total Protein 7.6 Albumin 4.0 Globulin 3.6 Albumin/Globulin Ratio 1.1 Serum , Qual NEGATIVE Urine Color Urine Clarity Urine pH Ur Specific [place] Urine Protein Urine Glucose (UA) Urine Ketones Urine Occult Blood Urine Nitrite Urine Bilirubin Urine Urobilinogen Ur Leukocyte Esterase Urine RBC Urine WBC Ur Squamous Epith Cells Urine Bacteria Urine Mucus 09/10/20 15:17 WBC RBC Hgb Hct MCV MCH MCHC RDW Std Deviation RDW Coeff of [place] Plt Count MPV Immature Gran % (Auto) Neut % (Auto) Lymph % (Auto) Power % (Auto) Eos % (Auto) Baso % (Auto) Absolute Neuts (auto) Absolute Lymphs (auto) Nucleated RBC % Sodium Potassium Chloride Carbon Dioxide Anion Gap BUN Creatinine Estim Creat Clear Calc Est GFR (MDRD) Af Amer Est GFR (MDRD) Non-Af BUN/Creatinine Ratio Glucose Calcium Total Bilirubin AST ALT Alkaline Phosphatase Total Protein Albumin Globulin Albumin/Globulin Ratio Serum , Qual Urine Color Yellow Urine Clarity Sl. Cloudy Urine pH 8.0 Ur Specific [place] 1.010 Urine Protein Negative Urine Glucose (UA) Normal Urine Ketones 15 H Urine Occult Blood 10 H Urine Nitrite Negative Urine Bilirubin Negative Urine Urobilinogen Normal Ur Leukocyte Esterase 25 H Urine RBC 0-5 SEEN Urine WBC 0-5 SEEN Ur Squamous Epith Cells 0-5 SEEN Urine Bacteria 0 SEEN Urine Mucus 0 SEEN Radiography Diagnostic Testing: Radiology Impression Transvaginal US 09/10/20 14:40 IMPRESSION: Small uterine fibroid. Otherwise unremarkable pelvic ultrasound. at 1705 Reported and signed by: Torin Grant MD Electronically Signed: Torin Grant MD at 17:04 EDT Tel , Service support , Discharge Plan Triage Chief Complaint: Flank Pain ED Provider: Melecio Katz Dx/Rx/DC Orders Clinical Impression: Lower abdominal pain, Endometriosis, Fibroid, uterine Instructions: ED Abdominal Pain Unkn Cause Fem Prescriptions: New ondansetron [ondansetron] 4 MG tablet 8 mg PO Q8H PRN PRN (Reason: Nausea) Qty: 20 RF: 0 dicyclomine 10 MG capsule 20 mg PO 4X/DAY PRN PRN (Reason: abdominal discomfort) Qty: 20 RF: 0 No Action cholecalciferol (vitamin D3) 50,000 unit capsule 2,000 unit PO DAILY RF: 0 fluticasone propionate 1 SPRAY spray,suspension 2 spray NASAL DAILY RF: 0 sertraline 25 mg tablet 25 mg PO DAILY RF: 0 Primary Care Provider: Carlos Villareal Referrals: Carlos Villareal MD [Primary Care Provider] - Melo Meeks MD [NON-STAFF] - Keep [facility] appointment Disposition Disposition: Home, self care
[2020-09-10] MEDS: Dicyclomine 10 MG Capsule 20 MG PO (15:20)
[2020-09-10] MEDS: Ketorolac 30 MG/ML Syringe IV (15:20)
[2020-09-10] MEDS: Morphine 4 MG/ML Syringe IV (15:20)
[2020-09-10] MEDS: Ondansetron 4 MG/2 ML Vial IV (15:20)
[2020-09-10 15:35] LABS: Bacteria 0 SEEN /hpf (None Seen); Mucous, Urine 0 SEEN /hpf (<or=2+)
[2020-09-10 15:36] LABS: Absolute Lymphocyte Count 1.81 X10^3/uL (0.83-4.51); Absolute Neutrophil Count 5.5 X10^3/uL (2.0-7.7); Basophil# 0.02 X10^3/uL; Basophil% 0.2 % (0-1); Eosinophil# 0.01 X10^3/uL; Eosinophils% 0.1 % (0-5); Hematocrit 41.2 % (37-47); Lymphocyte # 1.81 X10^3/ul (0.83-4.51); Lymphocyte % 22.5 % (19-41); Mean Corpuscular Hgb 30.4 pg (27.0-32.0); Mean Corpuscular Volume 89.4 fL (81-99); Mean Platelet Vol. 9.8 fl (6.2-12.0); Monocyte# 0.65 X10^3/uL; Monocyte% 8.1 % (0-10); NRBC Flagged by Analyzer 0 % (0-5); Neutrophil # 5.52 X10^3/uL (2.7-7.7); Neutrophil % 68.6 % (47-70); Platelet Count 406 K/mm3 (150-450); RBC Distribution Width CV 12.8 % (11.6-14.6); RBC Distribution Width SD 41.5 fl (35.1-43.9); Red Blood Count 4.61 M/mm3 (4.2-5.4); White Blood Count 8.1 K/mm3 (4.4-11.0)
[2020-09-10 15:38] LABS: Color, Urine Yellow (Yellow); Glucose, Dipstick Normal (Normal); Ketone-Dipstick 15 mg/dl (Negative); Leukocyte Esterase-Dipstick 25 /ul (Negative); Nitrite-Dipstick Negative (Negative); Occult Blood-Urine 10 /ul (Negative); Protein-Dipstick Negative (Negative); Urine Bilirubin Dipstick Negative (Negative); Urine Clarity Sl. Cloudy (Clear); Urine Urobilinogen Normal (Normal)
[2020-09-10 15:51] LABS: Internal QC Validated? YES +Cl - CLEAR BKGD; Pregnancy, Serum, hCG Quali. NEGATIVE Negative
[2020-09-10 15:56] LABS: Red Blood Cells-Urine 0-5 SEEN /hpf (0-5); Squamous Epithelial Cells - UA 0-5 SEEN /hpf (5-10); White Blood Cells 0-5 SEEN /hpf (0-5)
[2020-09-10 15:57] LABS: ALB/GLOB Ratio 1.1 RATIO (0.9-2.4); AST(SGOT) 15 U/L (15-37); Alanine Aminotransfer ALT/SGPT 17 U/L (13-56); Alkaline Phosphatase 77 U/L (45-117); Anion Gap 8 (5-15); BUN 6 mg/dL (7-18); BUN/Creat Ratio 9.3 RATIO (10-20); Calcium,Total 9.3 mg/dL (8.5-10.1); Chloride 108 mmol/L (98-107); Creatinine, Serum 0.64 mg/dL (0.55-1.02); EST Glomerular Filtration Rate 110 mL/min (>60); Est Glom Filt Rate - Afr Amer 133 mL/min (>60); Estimated Creatinine Clearance 90.82 ml/min; Globulin 3.6 g/dL (2.2-4.2); Glucose 97 mg/dL (74-106); Potassium 3.3 mmol/L (3.5-5.1); Protein, Total 7.6 g/dL (6.4-8.2); Sodium Level 140 mmol/L (136-145)
--- NOTE | 2020-09-10 16:29 | US_ITS ---
HISTORY: pain, bleeding EXAMINATION: US Transvaginal Non-OB TECHNIQUE: Transvaginal (for optimal evaluation of the adnexa) pelvic ultrasound was performed. Grayscale, spectral waveform, and color flow Doppler evaluation of the adnexa. COMPARISON: CT abdomen and pelvis 09/03/20 FINDINGS: UTERUS: anteverted. The uterus measures 9.0 x 4.6 x 3.9 cm. Small, hypoechoic area in the posterior myometrium consistent with fibroid measuring up to 10 mm. The endometrial stripe measures 7 mm in AP diameter which is within normal limits. Cervical nabothian cyst present. RIGHT OVARY: 3.8 x 2.0 x 1.6 cm. Non-enlarged, normal echogenicity. There is normal arterial inflow and venous outflow present in the right ovary. LEFT OVARY: 2.4 x 1.8 x 1.5 cm. Non-enlarged, normal echogenicity. There is normal arterial inflow and venous outflow present in the left ovary. FREE FLUID: None. US/Duplex Arterial Flow Limited IMPRESSION: Small uterine fibroid. Otherwise unremarkable pelvic ultrasound. at 1705 Reported and signed by: Torin Grant MD Electronically Signed: Torin Grant MD at 17:04 EDT Tel , Service support ,
[2020-09-10 16:33] VITALS: BP 125/90; PULSE 77; RESP 16; O2SAT 100
[2020-09-10 17:58] VITALS: BP 128/85; PULSE 85; RESP 16; O2SAT 100
== END 2020-09-10 17:58 | disposition home or self-care (01) ==
PROVIDERS: Emergency Provider Emergency Medicine; PCP Family Medicine
DX: R10.30 Lower abdominal pain, unspecified (principal); N80.9 Endometriosis, unspecified; D25.9 Leiomyoma of uterus, unspecified; Z87.891 Personal history of nicotine dependence; Z79.899 Other long term (current) drug therapy; Z86.711 Personal history of pulmonary embolism
CPT/HCPCS: 76830; 80053; 81001; 84703; 85025; 93976; 96374; 96375; 99284; A4216; J2405

== ENCOUNTER → 2021-03-24 10:39 | Outpatient (CLI) | payer BC, SELFPAY ==
[2021-03-24 12:24] LABS: Absolute Lymphocyte Count 1.65 X10^3/uL (0.83-4.51); Absolute Neutrophil Count 3.5 X10^3/uL (2.0-7.7); Basophil# 0.03 X10^3/uL; Basophil% 0.5 % (0-1); Eosinophil# 0.03 X10^3/uL; Eosinophils% 0.5 % (0-5); Hematocrit 40.5 % (37-47); Hemoglobin 13.2 g/dL (12.0-15.0); Lymphocyte # 1.65 X10^3/ul (0.83-4.51); Lymphocyte % 29.1 % (19-41); Mean Corp Hgb Conc 32.6 g/dL (32-36); Mean Corpuscular Hgb 29.5 pg (27.0-32.0); Mean Corpuscular Volume 90.4 fL (81-99); Mean Platelet Vol. 10.1 fl (6.2-12.0); Monocyte# 0.42 X10^3/uL; Monocyte% 7.4 % (0-10); NRBC Flagged by Analyzer 0 % (0-5); Neutrophil # 3.53 X10^3/uL (2.7-7.7); Neutrophil % 62.3 % (47-70); Platelet Count 392 K/mm3 (150-450); RBC Distribution Width CV 12.5 % (11.6-14.6); RBC Distribution Width SD 41.4 fl (35.1-43.9); Red Blood Count 4.48 M/mm3 (4.2-5.4); White Blood Count 5.7 K/mm3 (4.4-11.0)
[2021-03-24 12:41] LABS: Vitamin D,25 Hydroxy 29.1 ng/mL
[2021-03-24 12:44] LABS: ALB/GLOB Ratio 1.1 RATIO (0.9-2.4); AST(SGOT) 13 U/L (15-37); Alanine Aminotransfer ALT/SGPT 18 U/L (13-56); Albumin, Serum 3.7 g/dL (3.2-5.0); Alkaline Phosphatase 70 U/L (45-117); Anion Gap 7 (5-15); BUN 5 mg/dL (7-18); BUN/Creat Ratio 8.1 RATIO (10-20); Calcium,Total 8.9 mg/dL (8.5-10.1); Chloride 108 mmol/L (98-107); Creatinine, Serum 0.62 mg/dL (0.55-1.02); EST Glomerular Filtration Rate 115 mL/min (>60); Est Glom Filt Rate - Afr Amer 139 mL/min (>60); Globulin 3.4 g/dL (2.2-4.2); Glucose 95 mg/dL (74-106); Potassium 3.4 mmol/L (3.5-5.1); Protein, Total 7.1 g/dL (6.4-8.2); Sodium Level 139 mmol/L (136-145)
== END ==
PROVIDERS: PCP Family Medicine; Visit Provider Family Medicine
DX: E55.9 Vitamin D deficiency, unspecified (principal); K21.9 Gastro-esophageal reflux disease without esophagitis
CPT/HCPCS: 36415; 80053; 82306; 85025

== ENCOUNTER 2021-11-25 13:30 | Emergency (ER) | payer BC, SELFPAY ==
[2021-11-25 13:32] VITALS: BP 125/86; PULSE 87; RESP 16; TEMP 36.2; O2SAT 99; BMI 25.1
--- NOTE | 2021-11-25 13:58 | ED.VIS.BACK ---
HPI History of Present Illness Chief Complaint: Back Detail of Chief Complaint: Back pain that started yesterday Informant: patient Narrative Narrative: Patient presents with back pain that started yesterday. Patient states that she was bending over to tie the leash on her dog when she felt sudden onset of pain. Patient states that pain at times will travel into her left posterior thigh and she will have some intermittent numbness and tingling. Patient denies weakness in extremity. She denies change in bowel or bladder function. Patient has had problems with her back in the past. She denies urinary symptoms. She denies fevers. Prior similar symptoms: Yes [facility] Medical History (Updated 11/25/21 @ 14:[address] Beni Street, DO) Abdominal pain Acid reflux Anxiety Endometriosis Fatigue Hematemesis with nausea History of pulmonary embolism LUQ abdominal pain Metabolic acidosis Pancolitis Pneumonia SOB (shortness of breath) Home Medications fluticasone propionate 50 mcg/actuation nasal spray,suspension 2 spray NASAL DAILY 08/16/16 [History Last Taken Unknown] cholecalciferol (vitamin D3) 1,250 mcg (50,000 unit) capsule 2,000 unit PO DAILY 06/15/18 [History Last Taken Unknown] dicyclomine 10 mg capsule 20 mg PO 4X/DAY PRN PRN abdominal discomfort #20 CAPSULES 09/10/20 [Rx Last Taken Unknown] ondansetron 4 mg disintegrating tablet 8 mg PO Q8H PRN PRN Nausea #20 tabs 09/10/20 [Rx Last Taken Unknown] sertraline 25 mg tablet 25 mg PO DAILY 09/10/20 [History Last Taken Unknown] cyclobenzaprine 10 mg tablet 10 mg PO TID PRN Muscle Spasm #20 TABLETS 11/25/21 [Rx Last Taken Unknown] hydrocodone-acetaminophen 5-325mg 5mg-325mg 1 tab PO Q4H PRN PRN Pain 3 days #15 TABLETS 11/25/21 [Rx Last Taken Unknown] naproxen 500 mg tablet 500 mg PO BID #14 tabs 11/25/21 [Rx Last Taken Unknown] Allergy/AdvReac Type Severity Reaction Status Date / Time levofloxacin [From Levaquin] AdvReac Severe Swelling Verified 11/25/21 13:31 Family History Mother Arthritis Hypertension Sister Asthma Father Thyroid disorder Surgical History History of incision and drainage Hx of bilateral salpingectomy Hx of wisdom tooth extraction Social History Smoking Status: Former smoker second hand exposure: No alcohol intake: never substance use type: does not use caffeine: Yes frequency: does not exercise ROS ROS ED Review of Systems ROS Unobtainable: other Constitutional Constitutional ED: Reports lethargy; Denies chills, fever(s), sweats or weight loss Eyes Eyes: Denies blurry vision, change in vision or diplopia ENT ENT ED: Denies rhinorrhea or sore throat Cardiovascular Cardiovascular: Denies chest pain, orthopnea or racing heartbeat Respiratory/Chest Respiratory/Chest: Denies cough, dyspnea, dyspnea on exertion, orthopnea or sputum Gastrointestinal Gastrointestinal: Denies abdominal pain, diarrhea, nausea or vomiting Genitourinary Genitourinary ED: Denies dysuria, hematuria or urinary frequency Musculoskeletal Musculoskeletal: Reports back pain; Denies arthralgias, myalgias or neck pain Integumentary Denies abscess, Abrasions or rash Neurologic Neurologic: Denies headache(s) or weakness Psychiatric Psychiatric: Denies anxiety, depression or suicidal thoughts Endocrine Endocrinology: Denies polydipsia, polyphagia or polyuria Hematologic/Lymphatic Hematologic/Lymphatic: Denies easy bleeding, easy bruising or lymphadenopathy Allergic/Immunologic Allergic/Immunologic ED: Denies mouth swelling, tongue swelling or urticaria EXAM Physical Exam Const Vital Signs: 11/25/21 13:32 Temperature 97.2 F L Temperature Source Temporal Pulse Rate 87 Respiratory Rate 16 Blood Pressure 125/86 H Blood Pressure Mean 99 Pulse Ox 99 Oxygen Delivery Method Room Air Positive well nourished and well developed General Appearance ED: well developed and NAD HEENT Reports TM's clear and moist mucous membranes normocephalic and atraumatic; Negative for trauma or tenderness Tympanic Membrane ED: Yes TM's clear Eyes PERRL and EOMs intact bilaterally General Eye ED: Negative for pale conjunctiva or scleral icterus Neck no lymphadenopathy, supple and no JVD General: Negative for tenderness Chest Wall inspection of chest normal and palpation of chest normal Chest: Negative for tenderness Resp normal respiratory effort and clear to auscultation bilaterally Effort and Inspection: Negative for respiratory distress or pain with movement Auscultation: Negative for rhonchi, wheezes or diminished lung sounds Cardio regular rate, regular rhythm, S1 normal heart sound, S2 normal heart sound and no murmurs Peripheral Pulses: pulses 2+ throughout GI normal to inspection, nondistended, normoactive bowel sounds, soft to palpation, non-tender, non-distended and no masses Back/Spine no CVA tenderness Back/Spine Narrative: Patient has diffuse tenderness palpation over the lumbar paraspinal musculature bilaterally as well as the lower lumbar spine. Patient has negative straight leg raises. Deep tendon reflexes are plus 2 out of 4 bilaterally at the patella and Achilles. Patient has normal 5 extension. Patient has normal sensation to light touch. Extremity normal to inspection General Extremety ED: Negative for edema General Extremity: Negative for edema Neuro oriented x3, CN's II-XII intact bilaterally, no sensory deficits noted and gait normal Sensorium / Orientation: awake, alert, oriented to person, oriented to place and oriented to time Motor Exam: strength 5/5 throughout and strength abnormal Psych mental status grossly normal Skin no rashes or lesions noted and no wounds MDM MDM MDM Narrative Medical decision making narrative: Patient was medicated with Dilaudid, Toradol, and Norflex. Patient will be given a prescription for [place], Naprosyn, and Flexeril. She is advised to follow-up with her primary care physician within next 5 to 7 days. At this point there are no red flag symptoms or signs of cauda equina. I will feel imaging is indicated as she has had no trauma. Patient comfortable with plan going forward. Discharge Plan Triage Chief Complaint: Back ED Provider: Beni Street Dx/Rx/DC Orders Clinical Impression: Back pain Instructions: ED Back Spasm, No Trauma, ED Sciatica Prescriptions: New cyclobenzaprine [cyclobenzaprine] 10 mg tablet 10 mg PO TID PRN (Reason: Muscle Spasm) Qty: 20 0RF hydrocodone-acetaminophen [hydrocodone-acetaminophen] 5-325 mg tablet 1 tab PO Q4H PRN PRN (Reason: Pain) 3 Days Qty: 15 0RF naproxen 500 mg tablet 500 mg PO BID Qty: 14 0RF No Action cholecalciferol (vitamin D3) 50,000 unit capsule 2,000 unit PO DAILY fluticasone propionate 1 SPRAY spray,suspension 2 spray NASAL DAILY sertraline 25 mg tablet 25 mg PO DAILY Label Comments: TAKE 1/2 TABLET BY MOUTH DAILY ondansetron [ondansetron] 4 MG tablet 8 mg PO Q8H PRN PRN (Reason: Nausea) Qty: 20 0RF dicyclomine 10 MG capsule 20 mg PO 4X/DAY PRN PRN (Reason: abdominal discomfort) Qty: 20 0RF Primary Care Provider: Carlos Villareal Referrals: Carlos Villareal MD [Primary Care Provider] - 5-7 Days Disposition Disposition: Home, Self Care
[2021-11-25] MEDS: HYDROmorphone 1 MG/ML Syringe IM (14:03)
[2021-11-25] MEDS: Ketorolac 60 MG/2 ML Vial IM (14:04)
[2021-11-25] MEDS: Orphenadrine 60 MG/2 ML Ampul IM (14:04)
== END 2021-11-25 14:37 | disposition home or self-care (01) ==
LOC: ED 14:03
PROVIDERS: Emergency Provider Emergency Medicine; PCP Family Medicine; Visit Provider Emergency Medicine
DX: M54.9 Dorsalgia, unspecified (principal); Z87.891 Personal history of nicotine dependence
CPT/HCPCS: 96372; 96374; 99282

== ENCOUNTER → 2022-01-04 | Outpatient (CLI) | payer BC, SELFPAY ==
[2022-01-04 15:04] LABS: Absolute Lymphocyte Count 2.05 X10^3/uL (0.83-4.51); Absolute Neutrophil Count 3.5 X10^3/uL (2.0-7.7); Basophil# 0.04 X10^3/uL; Basophil% 0.7 % (0-1); Eosinophil# 0.04 X10^3/uL; Eosinophils% 0.7 % (0-5); Hematocrit 41.6 % (37-47); Hemoglobin 13.8 g/dL (12.0-15.0); Lymphocyte # 2.05 X10^3/ul (0.83-4.51); Lymphocyte % 33.3 % (19-41); Mean Corp Hgb Conc 33.2 g/dL (32-36); Mean Corpuscular Hgb 31.2 pg (27.0-32.0); Mean Corpuscular Volume 93.9 fL (81-99); Mean Platelet Vol. 10.6 fl (6.2-12.0); Monocyte# 0.53 X10^3/uL; Monocyte% 8.6 % (0-10); NRBC Flagged by Analyzer 0 % (0-5); Neutrophil # 3.49 X10^3/uL (2.7-7.7); Neutrophil % 56.7 % (47-70); Platelet Count 379 K/mm3 (150-450); RBC Distribution Width CV 13.6 % (11.6-14.6); RBC Distribution Width SD 47.1 fl (35.1-43.9); Red Blood Count 4.43 M/mm3 (4.2-5.4); White Blood Count 6.2 K/mm3 (4.4-11.0)
[2022-01-04 15:30] LABS: Vitamin D,25 Hydroxy 24.4 ng/mL
[2022-01-04 15:50] LABS: ALB/GLOB Ratio 1.1 RATIO (0.9-2.4); AST(SGOT) 16 U/L (15-37); Alanine Aminotransfer ALT/SGPT 31 U/L (13-56); Alkaline Phosphatase 69 U/L (45-117); Anion Gap 8 (5-15); BUN 6 mg/dL (7-18); BUN/Creat Ratio 8.5 RATIO (10-20); Calcium,Total 9.2 mg/dL (8.5-10.1); Chloride 110 mmol/L (98-107); Creatinine, Serum 0.71 mg/dL (0.55-1.02); EST Glomerular Filtration Rate 98 mL/min (>60); Est Glom Filt Rate - Afr Amer 118 mL/min (>60); Globulin 3.6 g/dL (2.2-4.2); Glucose 90 mg/dL (74-106); Potassium 3.8 mmol/L (3.5-5.1); Protein, Total 7.6 g/dL (6.4-8.2); Sodium Level 141 mmol/L (136-145); Thyroid Stim Hormone (TSH) 2.53 uIU/mL (0.358-3.74)
== END | disposition home or self-care (01) ==
LOC: MFPLAB 11:48
PROVIDERS: PCP Family Medicine; Referring Provider Family Medicine; Visit Provider Family Medicine
DX: N92.0 Excessive and frequent menstruation with regular cycle (principal); E55.9 Vitamin D deficiency, unspecified
CPT/HCPCS: 36415; 80053; 82306; 84443; 85025

== ENCOUNTER → 2022-05-20 | Outpatient (CLI) | payer OTHER, SELFPAY ==
[2022-05-20 15:41] LABS: ALB/GLOB Ratio 1.2 RATIO (0.9-2.4); AST(SGOT) 19 U/L (15-37); Alanine Aminotransfer ALT/SGPT 26 U/L (13-56); Albumin, Serum 4.2 g/dL (3.2-5.0); Alkaline Phosphatase 80 U/L (45-117); Anion Gap 6 (5-15); BUN 7 mg/dL (7-18); BUN/Creat Ratio 9.2 RATIO (10-20); Calcium,Total 9.4 mg/dL (8.5-10.1); Chloride 106 mmol/L (98-107); Creatinine, Serum 0.76 mg/dL (0.55-1.02); EST Glomerular Filtration Rate 89 mL/min (>60); Est Glom Filt Rate - Afr Amer 108 mL/min (>60); Globulin 3.6 g/dL (2.2-4.2); Glucose 88 mg/dL (74-106); Potassium 3.6 mmol/L (3.5-5.1); Protein, Total 7.8 g/dL (6.4-8.2); Sodium Level 137 mmol/L (136-145)
[2022-05-20 15:46] LABS: Vitamin D,25 Hydroxy 50.8 ng/mL
== END | disposition home or self-care (01) ==
LOC: MTLAB 11:50
PROVIDERS: PCP Family Medicine; Referring Provider Family Medicine; Visit Provider Family Medicine
DX: E55.9 Vitamin D deficiency, unspecified (principal)
CPT/HCPCS: 36415; 80053; 82306

== ENCOUNTER → 2022-06-14 | Outpatient (CLI) | payer OTHER, SELFPAY | END | disposition home or self-care (01) | LOC: LABSPEC 15:14 | PROVIDERS: PCP Family Medicine; Referring Provider Family Medicine; Visit Provider Family Medicine | DX: N39.0 Urinary tract infection, site not specified (principal) | CPT/HCPCS: 87086; 87088 ==

== ENCOUNTER → 2022-06-16 | Outpatient (CLI) | payer OTHER, SELFPAY ==
--- NOTE | 2022-06-16 08:53 | BI_ITS ---
MAMMOGRAPHY - BILATERAL DIAGNOSTIC REASON FOR EXAM: Female, 37 years old. Occasional left axillary lump. PERTINENT HISTORY: Non-contributory. TECHNIQUE: Digital bilateral breast coleman (3D mammographic acquisition) in the CC and MLO projections. 2-D mediolateral oblique (MLO) and craniocaudad (CC) views of both breasts were obtained. CAD: Full Field Digital Mammography with Computer Added Detection was performed. COMPARISON: None. Baseline examination. FINDINGS: Breast Composition: The breasts are extremely dense, which lowers the sensitivity of mammography. There are no dominant masses or suspicious calcifications. No other significant abnormalities are identified. BI/DIAG MAMM W/CAD, BILAT IMPRESSION: Negative diagnostic mammogram. With the patient''s history of left axillary lump, correlation with ultrasound is recommended. ASSESSMENT CATEGORY: BIRADS Category 0: Incomplete. Need additional imaging evaluation. A letter regarding these results will be sent to the patient by the facility within 30 days. Approximately 10% of breast cancers are not detected by mammography. A normal mammogram should not delay biopsy of a clinically suspicious abnormality. Electronically Signed: Ramo Sheridan MD at 10:04 EDT ,
--- NOTE | 2022-06-16 09:44 | US_ITS ---
STUDY: ULTRASOUND BREAST - LEFT REASON FOR EXAM: Female, 37 years old. Pain in the left breast. TECHNIQUE: Axial and longitudinal images of the LEFT breast were performed with a high resolution ultrasound transducer. # OF IMAGES: 23 COMPARISON: Comparison is made with prior study June 16, 2022. FINDINGS: LEFT Breast: The upper outer quadrant of the left breast was examined with ultrasound. There is evidence of dense fibroglandular tissue. No sonographic abnormality is seen. US/Breast Limited Unilateral IMPRESSION: No sonographic abnormality is seen. ASSESSMENT CATEGORY: BIRADS Category 1: Negative. A letter regarding these results will be sent to the patient by the facility within 30 days. Electronically Signed: Ramo Sheridan MD at 9:44 EDT ,
== END | disposition home or self-care (01) ==
LOC: OPBI 08:51
PROVIDERS: PCP Family Medicine; Visit Provider Family Medicine
DX: N63.20 Unspecified lump in the left breast, unspecified quadrant (principal); N64.4 Mastodynia
CPT/HCPCS: 76642; 77062; 77066; G0279

== ENCOUNTER → 2022-10-25 | Outpatient (CLI) | payer OTHER, SELFPAY ==
[2022-10-25 18:19] LABS: Vitamin D,25 Hydroxy 44.2 ng/mL
[2022-10-25 18:23] LABS: ALB/GLOB Ratio 1.3 RATIO (0.9-2.4); AST(SGOT) 15 U/L (15-37); Alanine Aminotransfer ALT/SGPT 21 U/L (13-56); Albumin, Serum 3.9 g/dL (3.2-5.0); Alkaline Phosphatase 65 U/L (45-117); Anion Gap 6 (5-15); BUN 8 mg/dL (7-18); BUN/Creat Ratio 8.9 RATIO (10-20); Chloride 109 mmol/L (98-107); Creatinine, Serum 0.89 mg/dL (0.55-1.02); EST Glomerular Filtration Rate 74 mL/min (>60); Est Glom Filt Rate - Afr Amer 90 mL/min (>60); Globulin 3.1 g/dL (2.2-4.2); Glucose 99 mg/dL (74-106); Potassium 3.4 mmol/L (3.5-5.1); Sodium Level 139 mmol/L (136-145)
== END | disposition home or self-care (01) ==
LOC: MFPLAB 14:37
PROVIDERS: PCP Family Medicine; Visit Provider Family Medicine
DX: E55.9 Vitamin D deficiency, unspecified (principal)
CPT/HCPCS: 36415; 80053; 82306

== ENCOUNTER → 2023-01-17 | Outpatient (CLI) | payer OTHER, SELFPAY ==
[2023-01-23 13:07] LABS: HPV APTIMA, High Risk Negative (Negative)
[2023-01-23 20:07] LABS: HPV Reflexed? YES, CHARGE PATIENT
== END | disposition home or self-care (01) ==
PROVIDERS: PCP Family Medicine; Visit Provider Nurse Practitioner Family
DX: Z12.4 Encounter for screening for malignant neoplasm of cervix (principal)
CPT/HCPCS: 87624; 88175; G0145

== ENCOUNTER → 2023-03-02 | Outpatient (CLI) | payer OTHER, SELFPAY ==
--- NOTE | 2023-03-02 16:41 | RAD_ITS ---
INDICATION: ACUTE BRONCHITIS EXAMINATION/TECHNIQUE: X-RAY - XR Chest 2 Views COMPARISON: 05/07/2018 FINDINGS: LINES/DEVICES: None. LUNGS: No consolidation, edema or effusion. No pneumothorax. MEDIASTINUM AND CARDIOVASCULAR STRUCTURES: Cardiac silhouette not enlarged. Central airways and mediastinal contour are unremarkable. BONES AND SOFT TISSUES: No acute changes. RAD/Chest PA and Lateral IMPRESSION: No radiographic evidence of acute cardiopulmonary disease. Electronically Signed: Torin Grant MD at 23:18 EST ,
== END | disposition home or self-care (01) ==
LOC: MTRAD 16:40
PROVIDERS: PCP Family Medicine; Referring Provider Family Medicine; Visit Provider Family Medicine
DX: J20.9 Acute bronchitis, unspecified (principal)
CPT/HCPCS: 71046

== ENCOUNTER 2023-07-08 09:04 | Emergency (ER) | payer OTHER, SELFPAY ==
[2023-07-08 09:04] VITALS: BP 128/93; PULSE 97; RESP 16; TEMP 36.1; O2SAT 100; BMI 23.6
--- NOTE | 2023-07-08 09:44 | EDS_ITS ---
HPI History of Present Illness Chief Complaint: Other, Pain/Inj Narrative Narrative: Patient is a 38-year-old female who is presenting to the ER with intermittent 6- month pain to her left TMJ. Patient has been having symptoms intimately for 6 months, after she had a dental procedure done 6 months ago. Patient has not followed up with her dentist since. Patient has not seen her PCP. Patient will intermittently use heat because she says it feels better but then its worse afterwards. Patient has no new dental injury, no trauma. Patient feels like there is crackling and popping in her left TMJ. Patient has not followed up with ENT. Patient is intermittently using Advil, but sometimes it upsets her stomach. Patient is with her . Patient came in today secondary to pain getting worse. No questions at discharge. No trauma, no fall, patient does have intermittent tension headaches as well. She does have a mild tension headache today. Patient's headache is not the worst headache of her life, not sudden left side, not thunderclap in nature. [facility] Medical History (Updated 07/08/23 @ 09:[address] Misha Springer DO) Abdominal pain Acid reflux Anxiety Endometriosis Fatigue Hematemesis with nausea History of pulmonary embolism LUQ abdominal pain Metabolic acidosis Pancolitis Pneumonia SOB (shortness of breath) Home Medications buspirone 5 mg tablet 2.5 mg PO BID 07/08/23 [History Last Taken 07/08/23] methylprednisolone 4 mg tablets in a dose pack 4 mg PO UD ##1 07/08/23 [Rx Last Taken Unknown] ondansetron 4 mg disintegrating tablet 4 mg PO Q8H PRN PRN Nausea #10 tabs 07/08/23 [Rx Last Taken Unknown] Allergy/AdvReac Type Severity Reaction Status Date / Time levofloxacin [From Levaquin] AdvReac Severe Swelling Verified 07/08/23 09:05 Family History Mother Arthritis Hypertension Sister Asthma Father Thyroid disorder Surgical History History of incision and drainage Hx of bilateral salpingectomy Hx of wisdom tooth extraction Social History Smoking Status: Former smoker second hand exposure: No alcohol intake: never substance use type: does not use caffeine: Yes frequency: does not exercise ROS ROS ED ROS Narrative REVIEW OF SYSTEMS: Unless otherwise stated in this report the patient's positive and negative responses for review of systems for constitutional, eyes, ENT, cardiovascular, respiratory, gastrointestinal, neurological, , musculoskeletal, and integument systems and related systems to the presenting problem are either stated in the history of present illness or were not pertinent or were negative for the symptoms and/or complaints related to the presenting medical problem. EXAM Physical Exam Narrative Exam Narrative: Nurses notes reviewed and patient is noted to be non-hypoxic. General: The patient is comfortable, alert and oriented x3, well appearing, non toxic in no apparent distress. When I walk into the room, patient has a warm washcloth against her left side of her face, left TMJ. Head: Atraumatic and normocephalic. Eyes: Normal conjunctiva ENT: The oropharynx is normal. No pharyngeal erythema, uvular edema, tonsillar exudates, asymmetry or trismus. Uvula is midline. Mouth is normal to inspection With the exception of evidence of dental caries. There is no evidence of facial asymmetry or abscess formation. Floor of the mouth is soft. No tenderness in the submental or submandibular space. No tongue elevation or deviation. The patient has no evidence of periapical abscess, gingivitis, ANUG or other acute pathology. Airway is patent. Patient does have moderate tenderness to palpation to left TMJ. No dislocation. No crepitus. Neck: The neck demonstrates normal range of motion. No meningeals signs are present. No stridor. No masses or lymphandenopathy noted. Respiratory: No acute distress, lungs are clear to auscultation, no wheezing, rhonchi, or rales noted. No stridor or retractions are noted. Cardiovascular: Regular rate and rhythm Skin: The skin exam shows no evidence of rashes Neuro: Alert and oriented x4, normal speech Lymphatic: No cervical lymphadenopathy Const Vital Signs: 07/08/23 09:04 07/08/23 10:08 Temperature 97 F L 98 F Temperature Source Temporal Pulse Rate 97 78 Respiratory Rate 16 16 Blood Pressure 128/93 H 134/96 H Blood Pressure Mean 104 108 Pulse Ox 100 98 Oxygen Delivery Method Room Air MDM MDM MDM Narrative Medical decision making narrative: Patient was educated at length to stop using heat. Patient is using heat which is increasing swelling and inflammation, patient agrees. Patient was recommended on using ice, patient alternate Tylenol and anti-inflammatories every 4 hours. Patient was placed on a Medrol Dosepak to help with pain and inflammation. Patient understands the importance of following up with ENT, PCP and dentist if needed. No questions at discharge. Patient has no source of infection. Discharge Plan Triage Chief Complaint: Other, Pain/Inj ED Provider: Misha Springer Dx/Rx/DC Orders Clinical Impression: TMJ pain dysfunction syndrome Instructions: TMJ Tx, TMJ Help Healing, ED TMJ Syndrome Prescriptions: New methylprednisolone [methylprednisolone] 4 mg tablets,dose pack 4 mg PO UD Qty: 1 0RF ondansetron [ondansetron] 4 mg tablet,disintegrating 4 mg PO Q8H PRN PRN (Reason: Nausea) Qty: 10 0RF No Action buspirone 5 mg tablet 2.5 mg PO BID Primary Care Provider: Carlos Villareal Referrals: Carlos Villareal MD [Primary Care Provider] - Activity Restrictions/Additional Instructions: Use ice 20 minutes on, 20 minutes off while awake for the next 2 or 3 days to help with your pain. Stop using heat, it is increasing inflammation and making it worse. Alternate Tylenol and Advil as discussed at bedside every 4 hours, take medication with food or drink to help buffer the medication. Medrol Dosepak has been prescribed as well, start taking this today. ENT has been referred to you as well for follow-up and TMJ syndrome continues. Continue soft diet for the next 1 to 2 weeks. Follow-up with your dentist as needed. Disposition Disposition: Home, Self Care Discharge Date/Time: 07/08/23 10:10
[2023-07-08] MEDS: Ketorolac 30 MG/ML Syringe IM (09:51)
[2023-07-08] MEDS: Orphenadrine 60 MG/2 ML Ampul IM (09:51)
[2023-07-08 10:08] VITALS: BP 134/96; PULSE 78; RESP 16; TEMP 36.6; O2SAT 98
== END 2023-07-08 10:10 | disposition home or self-care (01) ==
LOC: ED 09:51
PROVIDERS: Emergency Provider Emergency Medicine; PCP Family Medicine; Visit Provider Emergency Medicine
DX: M26.622 Arthralgia of left temporomandibular joint (principal); R51.9 Headache, unspecified; Z87.891 Personal history of nicotine dependence
CPT/HCPCS: 96372; 99282

== ENCOUNTER → 2023-09-27 | Outpatient (CLI) | payer OTHER, SELFPAY ==
--- NOTE | 2023-09-27 15:43 | RAD_ITS ---
STUDY: X-RAY - CERVICAL SPINE REASON FOR EXAM: Female, 38 years old. pain, headaches TECHNIQUE: 4 view(s) of the cervical spine were obtained. COMPARISON: None FINDINGS: Normal anterior atlantoaxial articulation. Normal odontoid process. Normal cervical lordosis. Normal vertebral bodies and endplates. Normal disc space heights. Normal visualized intervertebral neuroforamina. The soft tissue structures are unremarkable. RAD/Cerv Spine 2 or 3 Views IMPRESSION: Normal x-ray examination of the visualized cervical spine. Electronically Signed: Misha Keating MD at 17:21 EDT ,
== END | disposition home or self-care (01) ==
PROVIDERS: PCP Family Medicine; Referring Provider Family Medicine; Visit Provider Family Medicine
DX: R51.9 Headache, unspecified (principal)
CPT/HCPCS: 72040

== ENCOUNTER 2023-10-08 19:00 | Emergency (ER) | payer OTHER, SELFPAY ==
[2023-10-08 19:02] VITALS: BP 129/93; PULSE 112; RESP 18; TEMP 36.2; O2SAT 97; BMI 23.6
--- NOTE | 2023-10-08 19:25 | CT_ITS ---
INDICATION: pain EXAMINATION: CT CERVICAL SPINE - CT Spine Cervical W/O Contrast Injection TECHNIQUE: Helically acquired images were obtained of the cervical spine. 2D reformatted images were reviewed. A radiation dose optimization technique was used for this scan. IV Contrast dosage and agent: None. COMPARISON: None. FINDINGS: VERTEBRAE: No fracture or traumatic subluxation. No discrete lytic or blastic abnormality. Normal alignment. Normal craniocervical junction and cervicothoracic junction. DISCS and SPINAL CANAL: Disc heights are preserved. No critical stenosis. NECK SOFT TISSUES: No prevertebral soft tissue swelling. There is no cervical adenopathy. LUNG APICES: Clear. CT/Spine Cervical without Contras IMPRESSION: No evidence of acute cervical spinal fracture or spondylolisthesis. Electronically Signed: Bridger Chin MD at 20:38 EDT ,
--- NOTE | 2023-10-08 19:25 | CT_ITS ---
EXAMINATION : Head CT w/out contrast HISTORY : pain COMPARISON : None. TECHNIQUE : Multiple contiguous axial images were obtained from the skull base to the vertex without intravenous contrast. A radiation dose optimization technique was used for this scan. FINDINGS : The ventricles and sulci are normal in size. There is no evidence for acute intracranial hemorrhage, mass effect, or midline shift. There is no extra-axial fluid collection. There is normal mistry-white differentiation, without CT evidence of acute ischemia or infarct. The skull base and calvarium are unremarkable. The orbits are unremarkable. The paranasal sinuses are clear. The mastoid air cells are well-aerated. The soft tissues are unremarkable. CT/Brain/Head without Contrast IMPRESSION: No acute intracranial abnormality. Electronically Signed: Bridger Chin MD at 20:38 EDT ,
--- NOTE | 2023-10-08 19:28 | EX.ED.DYSGE1 ---
HPI History of Present Illness Chief Complaint: Other, Pain/Inj Detail of Chief Complaint: Head and neck pain Informant: patient Narrative Narrative: Patient presents with left-sided neck pain that wraps around to the left side of her face. She states she woke with symptoms on September 25. She been seen by her primary care physician who gave her 4 days of Nurtec to see if this was migraine related. She had no improvement. She is scheduled for an MRI on October 16. She states the only relief she will get briefly is with ibuprofen and Flexeril at home. She has not had any other imaging studies or lab work done. She states she was referred to the ER [facility], [place] because of increased pain. [facility] Medical History (Updated 10/08/23 @ 20:[address] Joy Hinton MD) Acid reflux LUQ abdominal pain Abdominal pain SOB (shortness of breath) Anxiety Fatigue Hematemesis with nausea Metabolic acidosis Pancolitis History of pulmonary embolism Pneumonia Endometriosis Home Medications ?Medication ?Instructions ?Recorded ?Last Taken ?Type buspirone 5 mg tablet 5 mg PO BID 07/08/23 07/08/23 History ondansetron 4 mg disintegrating 4 mg PO Q8H PRN PRN Nausea #10 tabs 07/08/23 Unknown Rx tablet cyclobenzaprine 10 mg tablet 10 mg PO TID PRN Muscle Spasm #20 10/08/23 Unknown Rx TABLETS naproxen 500 mg tablet (Naprosyn) 500 mg PO BID PRN pain #20 tabs 10/08/23 Unknown Rx ondansetron 4 mg disintegrating 4 mg PO Q8H PRN PRN Nausea #10 tabs 10/08/23 Unknown Rx tablet prednisone 10 mg tablet 10 mg PO UD #33 tabs 10/08/23 Unknown Rx Allergy/AdvReac Type Severity Reaction Status Date / Time levofloxacin (From Levaquin) AdvReac Severe Swelling Verified 10/08/23 19:02 Family History Mother Arthritis Hypertension Sister Asthma Father Thyroid disorder Surgical History Hx of wisdom tooth extraction History of incision and drainage Hx of bilateral salpingectomy Social History Smoking Status: Former smoker second hand exposure: No alcohol intake: never substance use type: does not use caffeine: Yes frequency: does not exercise ROS ROS ED Constitutional Constitutional ED: Denies chills or fever(s) Eyes Eyes: Reports other Details: Intermittent spasms to lower eyelid ; Denies discharge from eye(s) ENT ENT ED: Denies discharge from eye(s), rhinorrhea or sore throat Cardiovascular Cardiovascular: Denies chest pain or palpitations Respiratory/Chest Respiratory/Chest: Denies cough or dyspnea Gastrointestinal Gastrointestinal: Denies abdominal pain, nausea or vomiting Musculoskeletal Musculoskeletal: Reports neck pain; Denies back pain or extremity pain Integumentary Denies Abrasions or rash Neurologic Neurologic: Denies headache(s) or weakness Psychiatric Psychiatric: Denies anxiety or depression Allergic/Immunologic Allergic/Immunologic ED: Denies lip swelling or urticaria EXAM Physical Exam Const Vital Signs: 10/08/23 19:02 10/08/23 19:47 Temperature 97.1 F L Temperature Source Temporal Pulse Rate 112 H Respiratory Rate 18 Respiratory Effort Normal Respiratory Pattern Normal Blood Pressure 129/93 H Blood Pressure Mean 105 Pulse Ox 97 Oxygen Delivery Method Room Air Positive well nourished and well developed General Appearance ED: well developed HEENT Reports moist mucous membranes Eyes EOMs intact bilaterally Chest Wall inspection of chest normal and palpation of chest normal Resp normal respiratory effort and clear to auscultation bilaterally Cardio regular rate and regular rhythm GI normal to inspection, nondistended, normoactive bowel sounds Back/Spine Back/Spine Narrative: Muscular tenderness in the left cervical paraspinal muscles. No overlying skin change. No focal midline tenderness. Extremity normal to inspection Neuro oriented x3 and no sensory deficits noted Motor Exam: strength 5/5 throughout Psych mental status grossly normal Skin no rashes or lesions noted MDM MDM MDM Narrative Medical decision making narrative: IV line will be established. Patient be given Toradol, fentanyl, and Flexeril. Labwork obtained to evaluate for leukocytosis, anemia, and electrolyte derangement. CT scan of the head and C-spine will be obtained to evaluate for any chronic bony abnormalities or stenosis. History & Record Review Discussion w/independent historian: Patient Lab Data Attestation: I reviewed the patient's lab results. Labs: Laboratory Results - last 24 hr 10/08/23 19:50 WBC 6.1 RBC 4.04 L Hgb 12.0 Hct 36.8 L MCV 91.1 MCH 29.7 MCHC 32.6 RDW Std Deviation 40.7 RDW Coeff of Patricia 12.2 Plt Count 376 MPV 10.1 Immature Gran % (Auto) 0.300 Neut % (Auto) 56.6 Lymph % (Auto) 33.3 [place] % (Auto) 7.7 Eos % (Auto) 1.3 Baso % (Auto) 0.8 Absolute Neuts (auto) 3.5 Absolute Lymphs (auto) 2.04 Nucleated RBC % 0 ESR 13 Sodium 137 Potassium 3.8 Chloride 107 Carbon Dioxide 25.0 Anion Gap 5 BUN 10 Creatinine 0.63 Estim Creat Clear Calc 89.57 Est GFR (MDRD) Af Amer 135 Est GFR (MDRD) Non-Af 111 BUN/Creatinine Ratio 15.9 Glucose 94 Calcium 9.1 C-React Prot Ext Range < 2.90 Serum , Qual NEGATIVE Radiography Diagnostic Testing: Clinical Impression(s) from Imaging Studies Brain CT 10/08/23 19:25 IMPRESSION: No acute intracranial abnormality. Electronically Signed: Bridger Chin MD at 20:38 EDT , Cervical Spine CT 10/08/23 19:25 IMPRESSION: No evidence of acute cervical spinal fracture or spondylolisthesis. Electronically Signed: Bridger Chin MD at 20:38 EDT , Treatment and Re-Evaluation :: CBC was normal white count at 6.1 with a hemoglobin of 12.0. Differential unremarkable. Chemistry studies are normal. CRP and sed rate are normal. test negative. CT scan of the head and C-spine revealed no acute abnormalities. I did discuss with the patient that I think this is likely deep muscle spasm with pinched nerve. Patient be given a prescription for Naprosyn, Flexeril, prednisone, and Zofran. She has Pepcid at home that she will take also to help attacked her stomach. She will follow-up with her primary care physician as scheduled. Return instructions provided. Discharge Plan Triage Chief Complaint: Other, Pain/Inj Other Complaint: Neuro S/Sx ED Provider: Joy Hinton Dx/Rx/DC Orders Clinical Impression: Pinched cervical nerve root, Muscle spasm Instructions: ED Neck Spasm, No Trauma, ED Radiculopathy, Cervical Prescriptions: New naproxen [Naprosyn] 500 mg tablet 500 mg PO BID PRN (Reason: pain) Qty: 20 0RF ondansetron 4 mg tablet,disintegrating 4 mg PO Q8H PRN PRN (Reason: Nausea) Qty: 10 0RF prednisone 10 mg tablet 10 mg PO UD Qty: 33 0RF Rx Instructions: Take 4 tablets daily for 3 days, then 3 tablets daily for 3 days, then 2 tablets daily for 3 days, then 1 tablet a day for 3 days then 1 tablet every other day for 3 doses. cyclobenzaprine 10 mg tablet 10 mg PO TID PRN (Reason: Muscle Spasm) Qty: 20 0RF No Action buspirone 5 mg tablet 5 mg PO BID ondansetron [ondansetron] 4 mg tablet,disintegrating 4 mg PO Q8H PRN PRN (Reason: Nausea) Qty: 10 0RF Primary Care Provider: Carlos Villareal Referrals: Carlos Villareal MD [Primary Care Provider] - 1-2 Weeks Print Language: Sami Disposition Disposition: Home, Self Care
[2023-10-08] MEDS: fentaNYL 100 MCG/2 ML Ampul 25 MCG IV (19:36)
[2023-10-08] MEDS: Ketorolac 30 MG/ML Syringe IV (19:36)
[2023-10-08 19:48] VITALS: BMI 23.6
[2023-10-08] MEDS: 0.9% Normal Saline (1000mL) 1,000 ML 150 ML IV (19:48)
[2023-10-08 20:03] LABS: Internal QC Validated? YES +Cl - CLEAR BKGD; Pregnancy, Serum, hCG Quali. NEGATIVE Negative
[2023-10-08] MEDS: cycloBENZAPRine HCl 10 MG Tablet PO (20:15)
[2023-10-08 20:21] LABS: Anion Gap 5 (5-15); BUN 10 mg/dL (7-18); BUN/Creat Ratio 15.9 RATIO (10-20); CRP < 2.90 mg/L (0.0-3.0); Calcium,Total 9.1 mg/dL (8.5-10.1); Chloride 107 mmol/L (98-107); Creatinine, Serum 0.63 mg/dL (0.55-1.02); EST Glomerular Filtration Rate 111 mL/min (>60); Est Glom Filt Rate - Afr Amer 135 mL/min (>60); Estimated Creatinine Clearance 89.57 ml/min; Glucose 94 mg/dL (74-106); Potassium 3.8 mmol/L (3.5-5.1); Sodium Level 137 mmol/L (136-145)
[2023-10-08 20:23] LABS: Absolute Lymphocyte Count 2.04 X10^3/uL (0.83-4.51); Absolute Neutrophil Count 3.5 X10^3/uL (2.0-7.7); Basophil# 0.05 X10^3/uL; Basophil% 0.8 % (0-1); Eosinophil# 0.08 X10^3/uL; Eosinophils% 1.3 % (0-5); Hematocrit 36.8 % (37-47); Lymphocyte # 2.04 X10^3/ul (0.83-4.51); Lymphocyte % 33.3 % (19-41); Mean Corp Hgb Conc 32.6 g/dL (32-36); Mean Corpuscular Hgb 29.7 pg (27.0-32.0); Mean Corpuscular Volume 91.1 fL (81-99); Mean Platelet Vol. 10.1 fl (6.2-12.0); Monocyte# 0.47 X10^3/uL; Monocyte% 7.7 % (0-10); NRBC Flagged by Analyzer 0 % (0-5); Neutrophil # 3.46 X10^3/uL (2.7-7.7); Neutrophil % 56.6 % (47-70); Platelet Count 376 K/mm3 (150-450); RBC Distribution Width CV 12.2 % (11.6-14.6); RBC Distribution Width SD 40.7 fl (35.1-43.9); Red Blood Count 4.04 M/mm3 (4.2-5.4); White Blood Count 6.1 K/mm3 (4.4-11.0)
[2023-10-08 20:30] LABS: Erythrocyte Sedimentation Rate 13 mm/hr (0-30)
[2023-10-08 21:01] VITALS: BP 138/105; PULSE 88; RESP 16; TEMP 37.1; O2SAT 98
[2023-10-08] MEDS: predniSONE 20 MG Tablet 40 MG PO (21:12)
== END 2023-10-08 21:13 | disposition home or self-care (01) ==
PROVIDERS: Emergency Provider Emergency Medicine; PCP Family Medicine; Visit Provider Emergency Medicine
DX: G54.2 Cervical root disorders, not elsewhere classified (principal); M62.838 Other muscle spasm; K21.9 Gastro-esophageal reflux disease without esophagitis; F41.9 Anxiety disorder, unspecified; Z87.891 Personal history of nicotine dependence
CPT/HCPCS: 70450; 72125; 80048; 84703; 85025; 85652; 86140; 96361; 96374; 96375; 99284; J7030; A4216

== ENCOUNTER → 2023-10-17 | Outpatient (CLI) | payer OTHER, SELFPAY ==
--- NOTE | 2023-10-17 15:44 | MRI_ITS ---
STUDY: MRI BRAIN WITH AND WITHOUT CONTRAST REASON FOR EXAM: Female, 38 years old. worsening headache TECHNIQUE: Standardized multiplanar fat and water weighted pulse sequences were obtained. IV 10cc clariscan was administered for the contrast portion of the examination. COMPARISON: CT 10/08/2023 FINDINGS: Normal size of the ventricles and extra-axial spaces for the patient''s age. Normal white matter tracts of the supratentorial brain. There is no evidence for recent intracranial ischemia or other cause of cytotoxic edema on diffusion weighted imaging (DWI). Normal T2* images of the brain without demonstrated susceptibility artifact. There is no demonstrated hemosiderin stain. Normal bilateral basal ganglia. Normal thalami. There is no extra-axial fluid accumulation. Normal flow voids within the major intracranial circulation suggesting patency by spin echo criteria. Normal venous enhancement. There is no enhancing intra-axial or extra-axial abnormality. Normal sella turcica, pituitary gland, infundibular stalk, optic chiasm and hypothalamus. Normal tectal plate and pineal gland. Normal midbrain, adin and medulla. Normal cerebellum. Normal basal cisterns. Normal bilateral temporal bones. Normal bilateral internal auditory canals. No demonstrated orbital abnormality, within the constraints of a routine brain study. Opacification left sphenoid sinus consistent with sinusitis. Normal calvarium and skull base. Normal visualized soft tissue structures. Normal visualized upper cervical spine. MRI/Brain W/WO Contrast IMPRESSION: Normal unenhanced and enhanced MRI of the brain. Left sphenoid sinusitis Electronically Signed: Valdo Treadwell MD at 12:21 EDT ,
== END | disposition home or self-care (01) ==
LOC: MRI 15:28
PROVIDERS: PCP Family Medicine; Referring Provider Family Medicine; Visit Provider Family Medicine
DX: R51.9 Headache, unspecified (principal)
CPT/HCPCS: 70553; A9575

== ENCOUNTER → 2024-07-18 | Outpatient (CLI) | payer OTHER, SELFPAY ==
[2024-07-18 13:41] LABS: HIV Nonreactive (Nonreactive); Hepatitis B Surface Antigen Nonreactive (Nonreactive); Hepatitis C Antibody Nonreactive (Nonreactive); Syphilis Antibodies Nonreactive (Nonreactive)
[2024-07-19 23:07] LABS: Chlamydia By Nucleic Acid AMP Negative (Negative); Gonococcus By Nucleic Acid AMP Negative (Negative)
== END | disposition home or self-care (01) ==
PROVIDERS: PCP Family Medicine; Referring Provider Nurse Practitioner Family; Visit Provider Nurse Practitioner Family
DX: Z11.3 Encounter for screening for infections with a predominantly sexual mode of transmission (principal)
CPT/HCPCS: 36415; 86695; 86696; 86703; 86780; 86803; 87070; 87205; 87340; 87491; 87591

== ENCOUNTER → 2024-07-22 | Outpatient (CLI) | payer OTHER, SELFPAY ==
--- NOTE | 2024-07-22 16:25 | US_ITS ---
PROCEDURE: PELVIC W/ TRANSVAGINAL 07/22/2024 REASON FOR EXAM: ABNORMAL BLEEDING TECHNIQUE: Transabdominal pelvic ultrasound COMPARISON: September 10, 2020 FINDINGS: The uterus measures 9.5 x 5.2 x 4.1 cm. There is a posterior subserosal uterine fibroid measuring 1.1 x 1.2 x 0.8 cm. The endometrium measures 0.3 cm. There is a 0.6 cm nabothian cyst. The right ovary measures 4.0 x 1.2 x 2.1 cm, volume = 5 cc. The left ovary measures 3.6 x 2.1 x 1.5 cm, volume = 8.4 cc. There is no adnexal mass or free fluid. Prominent vessels are noted in the uterine margin, which can indicate venous congestion. US/Pelvic w/ Transvaginal IMPRESSION: Prominent vessels are noted in the uterine margin, which can indicate venous co ngestion. There is a posterior subserosal uterine fibroid measuring 1.1 x 1.2 x 0.8 cm. The endometrium measures 0.3 cm. Reading Location: [facility]
== END | disposition home or self-care (01) ==
LOC: US 16:24
PROVIDERS: PCP Family Medicine; Referring Provider Nurse Practitioner Family; Visit Provider Nurse Practitioner Family
DX: N93.9 Abnormal uterine and vaginal bleeding, unspecified (principal)
CPT/HCPCS: 76830; 76856

== ENCOUNTER → 2024-08-13 | Outpatient (CLI) | payer OTHER, SELFPAY ==
--- NOTE | 2024-08-13 08:30 | EMB_PTH ---
PATIENT: MARTA MCCALL LOC: [facility] U#:[id number] AGE/SX: 39/F ROOM: RE08/13/[address]: Dr. Joy Tyler DO : 1985 BED: DIS: 08/13/2024 SPEC #: [id number] RECD: 08/13/24 12:06 STATUS: HARJEET SHAHANA #: [id number] NIKOS: 08/13/24 08:[address]: Joy Tlyer DEPT: SURGICAL PATHOLOGY RECD BY: Duglas Resendiz ENTERED: 08/13/24 13:01 SP TYPE: ENDOM BX/C CAROLHR DR: Dr. Carlos Villareal MD Tissues: A - Endometrium, NOS Procedures: Surgery Specimen Level IV HEADER OPERATION: Endometrial biopsy PRE-OP DIAGNOSIS: Irregular menses TISSUE SUBMITTED: A- Endometrial lining MICROSCOPIC DIAGNOSIS A. Endometrium, biopsy: * Fragments of inactive/basalis endometrium with focal shedding stroma. MICROSCOPIC DESCRIPTION Slides are reviewed. GROSS DESCRIPTION A. Received in formalin in a container labeled with the patient's name, date of , and with no further designation are multiple kevin fragments of soft tissue admixed with blood and mucus measuring 1.9 x 0.6 x 0.3 cm in aggregate. Submitted in toto in A1. B 08-13-2024 CPT:30084
== END | disposition home or self-care (01) ==
LOC: LABSPEC 11:45
PROVIDERS: PCP Family Medicine; Referring Provider Obstetrics & Gynecology; Visit Provider Obstetrics & Gynecology
DX: N85.8 Other specified noninflammatory disorders of uterus (principal); N92.6 Irregular menstruation, unspecified
CPT/HCPCS: 88305

== ENCOUNTER 2024-09-17 12:17 | Day surgery (SDC) | payer OTHER, SELFPAY ==
[2024-09-12 12:03] LABS: Hematocrit 36.2 % (37-47); Hemoglobin 12.1 g/dL (12.0-15.0); Mean Corp Hgb Conc 33.4 g/dL (32-36); Mean Corpuscular Hgb 29.5 pg (27.0-32.0); Mean Corpuscular Volume 88.3 fL (81-99); Mean Platelet Vol. 9.8 fl (6.2-12.0); Platelet Count 291 K/mm3 (150-450); RBC Distribution Width SD 45.2 fl (35.1-43.9); White Blood Count 7.8 K/mm3 (4.4-11.0)
[2024-09-17] VITALS (7 sets, daily range): BP systolic 117–152; BP diastolic 91–117; PULSE 71–96; RESP 14–16; TEMP 36.4–36.8; O2SAT 98–100; BMI 19.6
[2024-09-17] MEDS: Lactated Ringers 1,000 ML 15 ML IV (13:01)
[2024-09-17] MEDS: Enoxaparin 40 MG/0.4 ML Syringe SC (13:01)
--- NOTE | 2024-09-17 14:01 | PRE.ANES_ITS ---
ASA Classification* ASA Classification ASA Classification: 2 Assessment & Plan Anesthesia* Anesthesia Assessment Anesthesia Assessment: Discussed sedation and/or anesthesia options, risks, benefits, and alternatives with patient/parents/legal guardian/POA. Questions invited. The patient/parents/legal guardian/POA seems to understand and agrees to proceed with anesthesia plan. Reviewed the physical assessment, medical history, allergy history and patient home medications list prior to surgery/procedure/anesthetic and documented any changes. Performed airway and anesthesia risk assessments. Anesthesia Type Anesthesia Type: MAC History Source History Obtained from:: Patient and Chart Anesthesia Focused Assessment* Temperature: 98.2 F Pulse Rate: 92 Blood Pressure: 117/91 Respiratory Rate: 14 Pulse Ox: 98 Oxygen Delivery Method: Room Air Airway Assessment Mouth opens: >3 cm Mallampati Score: II Teeth Condition: Caps/Crowns (Patient has several crowns. They are tight.) Neck Range of motion (ROM): Full ROM Labs Anesthesia Preop lab: CBC WBC 7.8 K/mm3 (4.4-11.0) 09/12/24 11:40 09/12/24 RBC 4.10 M/mm3 (4.2-5.4) L 09/12/24 11:40 09/12/24 Hgb 12.1 g/dL (12.0-15.0) 09/12/24 11:40 09/12/24 Hct 36.2 % (37-47) L 09/12/24 11:40 09/12/24 Plt Count 291 K/mm3 (150-450) 09/12/24 11:40 09/12/24 CHEMISTRY Potassium 3.8 mmol/L (3.5-5.1) 10/08/23 19:50 10/08/23 Sodium 137 mmol/L (136-145) 10/08/23 19:50 10/08/23 Magnesium 1.6 mg/dL (1.6-2.6) 07/24/17 01:38 07/24/17 BUN 10 mg/dL (7-18) 10/08/23 19:50 10/08/23 Creatinine 0.63 mg/dL (0.55-1.02) 10/08/23 19:50 10/08/23 Glucose 94 mg/dL (74-106) 10/08/23 19:50 10/08/23 TSH 2.53 uIU/mL (0.358-3.74) 01/04/22 11:48 COAG PT 14.8 SECONDS (11.7-14.9) 07/23/17 22:11 Urine Test Negative Negative 02/12/16 15:30 02/12/16 Tst Clinic Negative 07/09/24 11:00 07/09/24 Pre-Assessment Diagnosis/Proposed Procedure Planned Operative Procedure(s): HYSTEROSCOPY D&C BULMARO Anesthesia History Anesthesia History - software specialist: Anesthesia History - software specialist Hx Hospitalization No 09/09/24 09:32 Any Problems With Anesthesia Yes: N,V 09/09/24 09:32 Cholinesterase deficiency No 09/09/24 09:32 You/Your Family Experience No 09/09/24 09:32 fever (hyperthermia) with Relationship Recent Exposure to Contagious No 09/17/24 12:47 Disease Does patient have nerve No 09/09/24 09:32 stimulator Patient instructed to have device shut off --Does patient have Pacemaker No 09/17/24 12:47 or ICD? When Was Last Pacemaker Check QUESTION #4 FULL TEXT: You/Your Family Experience fever (hyperthermia) with Anesthesia Last Oral Intake Last Oral intake: Last Oral Intake NPO since 22:00 09/17/24 12:47 Meds taken in AM with sips of No 09/17/24 12:47 water? Meds patient instructed to take am of surgery PONV PONV - software specialist: PONV - software specialist Female Yes 09/09/24 09:32 HX of Motion Sickness Yes 09/09/24 09:32 HX of N/V After Surgery Yes 09/09/24 09:32 Non-Smoker Yes 09/09/24 09:32 Duration of Surgery greater No 09/09/24 09:32 than 60 minutes Number of Risk Factors 4 09/09/24 09:32 PONV Score Severe Risk 09/09/24 09:32 Height & Weight Height & Weight: Anesthesia: Height & Weight Height 5 ft 1 in 09/17/24 12:47 Weight: 47.1 kg 09/17/24 12:47 Body Mass Index (BMI) 19.6 09/17/24 12:47 Respiratory Assessment Respiratory Assessment - software specialist: Respiratory Tract Infection Hx - software specialist Hx Respiratory Tract Infection No 09/09/24 09:32 Any additional information?: Yes Hx Respiratory Tract Infection: No (Patient has a chronic cough.) STOP Sleep Apnea STOP Sleep Apnea - software specialist: STOP Sleep Apnea - software specialist Hx Hypertension No 09/09/24 09:32 Hx Sleep Apnea No 09/09/24 09:32 CPAP No 08/13/24 12:33 BIPAP Do you snore loudly (louder No 09/09/24 09:32 than talking or can be heard Do you often feel tired/ Yes 09/09/24 09:32 fatigued/ sleepy during daytime? Has anyone observed you stop No 09/09/24 09:32 breathing during sleep? STOP Results Negative 09/09/24 09:32 QUESTION #5 FULL TEXT : Do you snore loudly (louder than talking or can be heard through closed doors)? 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 Specify any problems Hx of Preganancy in last 3 No 09/09/24 09:32 Months Nurse Filling Out Transfusion DSCHRIBER 09/09/24 09:32 & Questions: Date: 09/09/24 09/09/24 09:32 Time: 09:33 09/09/24 09:32 Patient unable to answer at this time (ie. confused, unrespo /Reproduction History /Reproductive History - software specialist: /Reproductive Hx- software specialist Hx Now No 09/09/24 09:32 Gestational Age (in weeks): EDC: Hx Hx Para Hx Section SAB No 09/09/24 09:32 Active Medications Active Medications: Current Medications Generic Name Dose Route Start Last Admin Trade Name Freq PRN Reason Stop Dose Admin Enoxaparin Sodium 40 mg 09/17/24 14:20 09/17/24 13:01 Enoxaparin 40 Mg/0.4 Ml Syringe SC 09/17/24 14:21 40 mg PREOP ONE Administration Lactated Ringer's 1,000 mls @ 15 mls/hr 09/17/24 12:30 09/17/24 13:01 IV 15 mls/hr .Q48H LENA Administration PFSH Medical History Wears glasses Depression Marijuana use Alcohol use Anemia Excessive bleeding Migraine headache Syncope Gastric reflux Former smoker History of irregular heartbeat PMDD (premenstrual dysphoric disorder) Tension headache Anxiety Metabolic acidosis Pancolitis History of pulmonary embolism Endometriosis Home Medications ?Medication ?Instructions ?Recorded ?Last Taken ?Type ergocalciferol (vitamin D2) 1,250 1,250 mcg PO QWEEK 1 09/11/24 History mcg (50,000 unit) capsule multivitamin 1 tab PO QAM 12/28/23 History amitriptyline 10 mg tablet 5 mg PO QHS 07/09/24 History indomethacin 25 mg capsule 25 mg PO BID PRN MIGRAINE 0 07/09/24 Unknown History norethindrone (contraceptive) 0.35 0.35 mg PO QDAY PRN MENSTURAL CYCLE 09/09/24 09/16/24 History mg tablet Allergy/AdvReac Type Severity Reaction Status Date / Time levofloxacin (From Levaquin) AdvReac Severe Swelling Verified 09/17/24 12:41 montelukast (From Singulair) AdvReac rapid Verified 09/17/24 12:41 heart rate Family History Mother Arthritis Hypertension FH: mental illness Gallbladder disease Sister Asthma FH: mental illness Father Thyroid disorder FH: mental illness Cancer Grandmother FH: mental illness Family history of iqaphq-wc-mujctsszk syndrome Grandmother FH: mental illness Grandfather Cancer Bleeding disorder Diabetes Son Autism Uncle Autism Sister Autism Sister Bipolar 1 disorder Brother Down syndrome Surgical History Hx of laparoscopy Hx of wisdom tooth extraction History of incision and drainage Hx of bilateral salpingectomy Social History adopted: No number of children: 2 current occupational status: employed 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 sexually active: Yes Smoking Status: Former smoker pack-years: 3 Tobacco: How many years used: 6 second hand exposure: No alcohol intake: current alcohol intake frequency: holidays/special occasions only Alcohol type: beer substance use type: marijuana caffeine: Yes what type of physical activity do you participate in: walking frequency: 3-4 times per week abhishek/roman catholic: Sabianism seatbelt use: always do you feel safe at home: Yes additional social history: - Stefano Review of Systems (Anesthesia) ROS Narrative System reviewed and no additional complaints, except as documented.
--- NOTE | 2024-09-17 14:20 | EMB_PTH ---
PATIENT: MARTA MCCALL LOC: [facility] U#:[id number] AGE/SX: 39/F ROOM: RE09/17/[address]: Dr. Joy Tyler DO : 1985 BED: DIS: 09/17/2024 SPEC #: [id number] RECD: 09/17/24 18:08 STATUS: HARJEET SHAHANA #: [id number] NIKOS: 09/17/24 14:[address]: Joy Tyler DEPT: SURGICAL PATHOLOGY RECD BY: Duglas Resendiz ENTERED: 09/18/24 09:31 SP TYPE: ENDOM BX/C OTHR DR: Dr. Carlos Villareal MD Tissues: A - Endometrium, NOS Procedures: Surgery Specimen Level IV HEADER OPERATION: Hysteroscopy, D&C PRE-OP DIAGNOSIS: Pelvic congestion syndrome, irregular menses, fibroid, uterine TISSUE SUBMITTED: A- Endometrial curettings MICROSCOPIC DIAGNOSIS A. Endometrium, hysteroscopy, dilation and curettage: * Weakly proliferative endometrium * Endocervical tissue with squamous metaplasia and chronic endocervicitis MICROSCOPIC DESCRIPTION Slides are reviewed. GROSS DESCRIPTION A. Received in formalin labeled with the patient's name and date of . Designated as endometrial curettings is a 1.5 x 0.6 x 0.1 cm aggregate of kevin-pink to red tissue and clotted blood. Entirely submitted in 1 cassette. CA 09/18/2024 CPT:58428
--- NOTE | 2024-09-17 14:26 | PCM.HP.BLA ---
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 2 tab PO DAILY 01/19/24 09/06/24 History cell-inulin 1 gram-vit C 15 mg chew tablet (Culturelle Probiotic-Prebiotic) amitriptyline 10 mg tablet 10 mg PO QDAY 07/09/24 09/06/24 History indomethacin 25 mg capsule 25 mg PO BID 07/09/24 09/06/24 History norethindrone (contraceptive) 0.35 0.35 mg PO QDAY #84 tabs 07/09/24 09/06/24 Rx mg tablet Post menopausal: No Patient : No : No PFSH Medical History PMDD (premenstrual dysphoric disorder) Tension headache Acid reflux LUQ abdominal pain Abdominal pain SOB (shortness of breath) Anxiety Fatigue Hematemesis with nausea Metabolic acidosis Pancolitis History of pulmonary embolism Pneumonia Endometriosis Surgical History Hx of laparoscopy Hx of wisdom tooth extraction History of incision and drainage Hx of bilateral salpingectomy Family History Mother Arthritis Hypertension FH: mental illness Gallbladder diseaseSister Asthma FH: mental illnessFather Thyroid disorder FH: mental illness CancerGrandmother FH: mental illness Family history of xvzuxx-rm-qnqjhquep syndromeGrandmother FH: mental illnessGrandfather Cancer Bleeding disorder DiabetesSon AutismUncle AutismSister AutismSister Bipolar 1 disorderBrother Down syndrome Social History adopted: No number of children: 2 current occupational status: employed 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 sexually active: Yes Smoking Status: Former smoker pack-years: 3 Tobacco: How many years used: 6 second hand exposure: No alcohol intake: current alcohol intake frequency: holidays/special occasions only Alcohol type: beer substance use type: marijuana caffeine: Yes what type of physical activity do you participate in: walking frequency: 3-4 times per week abhishek/latter day: Catholic seatbelt use: always do you feel safe at home: Yes additional social history: - Stefano Torres ablation, D&C Details: MARTA MCCALL is a 39 year old who presents for discussion ab out continuous bleeding and heavy bleeding at times. She has a history of 2 vaginal deliveries (kids are 17 and 11). in 2016 she underwent an essure procedure. Shortly after she developed severe pelvic pain. She was taken to [facility] surgery center for laparoscopic bilateral salpingectomy. At that time she was noted to have endometriosis. Following the procedures she developed sepsis and massive multiple bilateral pulmonary emboli. She was treated at [facility] with blood thinners and antibiotics for a week before she was discharged. She was told that the reason for the complications was from being on control shortly after surgery. She was put on this to help regulate her endometriosis. Recent ultrasound showed a 9 cm uterus with a small fundal fibroid and evidence of pelvic congestion syndrome. She states that her mom and sister both had ablations and she is interested in an ablation before she would want to move forward with a hysterectomy. endometrial biopsy was benign. ultrasound showed the following: FINDINGS: The uterus measures 9.5 x 5.2 x 4.1 cm. There is a posterior subserosal uterine fibroid measuring 1.1 x 1.2 x 0.8 cm. The endometrium measures 0.3 cm. There is a 0.6 cm nabothian cyst. The right ovary measures 4.0 x 1.2 x 2.1 cm, volume = 5 cc. The left ovary measures 3.6 x 2.1 x 1.5 cm, volume = 8.4 cc. There is no adnexal mass or free fluid. Prominent vessels are noted in the uterine margin, which can indicate venous congestion. US/Pelvic w/ Transvaginal IMPRESSION: Prominent vessels are noted in the uterine margin, which can indicate venous congestion. There is a posterior subserosal uterine fibroid measuring 1.1 x 1.2 x 0.8 cm. The endometrium measures 0.3 cm. History 2 Elective abortions Hx Para 2 Spontaneous abortions Hx # Term Pregnancies Ectopic pregnancies Hx # Pregnancies Multiple births # of living children 2 Past Pregnancies Del. Date Name GA/Weeks Outcome Route Bth Weight Gen Labor Lgth Anesthesia Del Locatn Provider FOB 07/13/07 Bertrand live - full term Male [facility] 12/06/15 Melo live - full term Male [facility] ROS Const ROS Unobtainable: All systems reviewed & are unremarkable except as noted in H Resp Resp: Reports system reviewed and no additional complaints, except as documented; Denies cough GI GI: Reports as per HPI Psych Psych: Reports system reviewed and no additional complaints, except as documented Exam Const General: cooperative, healthy appearing, comfortable and no acute distress Resp Effort & Inspection: normal respiratory effort Skin General: no rashes or lesions noted Psych Appearance: grossly normal Speech and Movement: speech and movement normal Coding Level of Care Code Off vis,est,level 4 Diagnoses Pelvic congestion syndrome N94.89 H/O tubal ligation Z98.51 Irregular menses N92.6 Fibroid, uterine D25.9 History of pulmonary embolism Z86.711 Assessment and Plan Assessment and Plan (1) Pelvic congestion syndrome: Status: Acute (2) H/O tubal ligation: Status: Acute Comment: essure procedure -Dr Marroquin 2015 (3) Irregular menses: Status: Acute (4) Fibroid, uterine: Status: Acute (5) History of pulmonary embolism: Status: Resolved Plan After discussing the patient's diagnosis and treatment plan options, patient wishes to proceed with surgical management. I have discussed with the patient the risks, benefits, and alternatives of the procedure which include but are not limited to risks of anesthesia, bleeding, infection, possible damage to bowel, bladder, or surrounding vasculature which could lead to additional surgery to evaluate any complications. Patient agrees to procedure and wishes to proceed. ACOG/uptodate references given for additional information regarding procedure. plan for hysteroscopy D&C, levi ablation. plan for use of heparin prophylcactically
--- NOTE | 2024-09-17 14:34 | PCM.DC ---
Discharge Instructions Diet Discharge Diet: No restrictions DC O2, CPAP, BIPAP needs Home O2 Discharge instructions: No Dressing / Incision Discharge Activity: Return to Normal Activity, May Shower and May Take a Tub Bath (after 1 week) May resume sexual activity in: 1-2 weeks Weight Bearing Status: Weight bearing as tolerated Lifting Restrictions: none Dressing / Incision Call your doctor if you observe: Fever of 101 or Higher, Using more than 1 pad per hour, Shortness of breath and Uncontrolled pain Follow Up Care Please Follow Up With: Joy Tyler DO When: Call [phone] to schedule appointment. Test Results: Test results from this visit will be discussed in further detail at your follow-up appointment, if applicable. Discharge Plan Admission Primary Reason for Your Visit: endometrial ablation Attending Provider: Joy Tyler Primary Care Provider: Carlos Villareal Instructions Print Language: Singaporean Discharge Orders/Prescriptions Prescriptions: New ibuprofen 800 mg tablet 800 mg PO Q8H PRN (Reason: pain) Qty: 30 0RF Rx Instructions: do not take at same time as indocin oxycodone-acetaminophen [Percocet] 5-325 mg tablet 1 tab PO Q4H PRN (Reason: pain) 7 Days Qty: 5 0RF Continued multivitamin Tablet 1 tab PO QAM ergocalciferol (vitamin D2) 1,250 mcg (50,000 unit) capsule 1,250 mcg PO QWEEK indomethacin 25 mg capsule 25 mg PO BID PRN (Reason: MIGRAINE) Rx Instructions: administer with food or milk amitriptyline 10 mg tablet 5 mg PO QHS norethindrone (contraceptive) 0.35 mg tablet 0.35 mg PO QDAY PRN (Reason: MENSTURAL CYCLE) Rx Instructions: start day 1 of menstrual cycle. Referrals / Follow Up: Carlos Villareal MD [Primary Care Provider] - Disposition Disposition (needs filled in before D/C Order can be placed): Home, Self Care
--- NOTE | 2024-09-17 16:20 | PCM.POST.ANE ---
Anesthesia: Postop Eval I Current Vital Signs Temperature: 98.3 F Pulse Rate: 92 Blood Pressure: 117/91 Respiratory Rate: 15 Pulse Ox: 98 Oxygen Delivery Method: Room Air Assessment Airway patent: Yes Spontaneous unlabored respirations: Yes Mental status: Awake and Calm nausea: No Vomiting: No Anesthesia Complication: No Fluid Hydration Crystalloid volume administer (ml): 500 Total IV fluid infused: 500 Progress Note Anesthesia document: Postop Eval 1 completed: Yes
--- NOTE | 2024-09-17 16:21 | OP.PCM_ITS ---
Problems Associated Problem List Diagnoses (1) Menorrhagia: Multi Select Codes Urinary/Genital Urinary/Genital CPT Codes: 20870 Melissa/Novasure and 92363 Hysteroscopy,EMC, Polypectomy Operative Report (Standard) Operative Information Date of Procedure: 09/17/24 Pre-Operative Diagnosis: menorrhagia Post-Operative Diagnosis: menorrhagia Surgery/Procedure Performed: hysteroscopy dilation and curettage, melissa endometrial ablatioin acting section chief: No Type of Anesthesia: MAC and Topical Anesth RN Documented Start/Stop Times: Operation Date: 09/17/24 14:20 Case Time Into Pre-Op 09/17/24 12:29 Anesthesia Start 09/17/24 15:39 Into Room 09/17/24 15:39 Procedure Start 09/17/24 15:53 Procedure End 09/17/24 16:08 Anesthesia End 09/17/24 16:11 Out of Room 09/17/24 16:11 Into Recovery 09/17/24 16:13 Procedure Start Time: 15:53 Procedure Stop Time: 16:08 Select all DRAINS/GRAFTS/IMPLANTS that apply: None Estimated Blood Loss: 10cc Specimen collected: Yes Description of specimen(s) removed: endometrial curetting's Description of surgery: The patient was prepped and draped in a normal sterile fashion under MAC anesthesia. A weighted speculum was placed in the vagina and the anterior lip of the cervix was grasped with a single-tooth tenaculum. A paracervical block was placed with 1% lidocaine. Cervix was progressively dilated to allow passage of a 5 mm hysteroscope. The lining was fully visualized and noted to have proliferative appearing tissue . The uterus sounded to 9 cm. Curettage was performed and specimen was sent to pathology. The Melissa device was opened and the cavity length was found to be 5 cm. Device was inserted into the uterus and balloon inflated and device deployed. Integrity of the cavity was confirmed and a 2 minute treatment cycle was completed without complication. All instruments were removed from the vagina and excellent hemostasis was noted. Patient was awoken and taken to recovery in stable condition. Surgical Findings: normal vagina, cervix, and endometrium Complications Complications: No Admit VTE Documentation VTE Present on Admission: No VTE Mechan Device Prophylaxis: SCD's VTE Pharm Prophylaxis ordered?: No
--- NOTE | 2024-09-17 22:38 | POSTOPAN2_ITS ---
Anesthesia Postop Eval I Sum Postop Eval Completion status Anesthesia document: Postop Eval 1 completed: Yes Anesthesia Postop Eval I Summary Anesthesia Postop Eval I Summary: Anesthesia Postop Eval I: Assessment Summary Airway patent Yes 09/17/24 16:20 [email or web address] Spontaneous unlabored Yes 09/17/24 16:20 [email or web address] respirations Mental status Awake,Calm 09/17/24 16:20 [email or web address] nausea No 09/17/24 16:20 [email or web address] Vomiting No 09/17/24 16:20 [email or web address] Anesthesia Postop Eval I: Fluid Summary Crystalloid volume administer 500 09/17/24 16:20 [email or web address] (ml) Colloids volume administered ( ml) Blood Product volume administered (ml) Total IV fluid infused 500 09/17/24 16:20 [email or web address] Anesthesia Postop Eval I: Summary Notes Anesthesia Complication No 09/17/24 16:20 [email or web address] Anesthesia Complication Comment: Post-operative progress note Anesthesia: Postop Eval II Evaluation Mental status: Awake and Calm Pain Level: 1 nausea: No Vomiting: No Complications Anesthesia Complication: No
--- NOTE | 2024-09-17 22:38 | PCM.POSTANE2 ---
Anesthesia Postop Eval I Sum Postop Eval Completion status Anesthesia document: Postop Eval 1 completed: Yes Anesthesia Postop Eval I Summary Anesthesia Postop Eval I Summary: Anesthesia Postop Eval I: Assessment Summary Airway patent Yes 09/17/24 16:20 [email or web address] Spontaneous unlabored Yes 09/17/24 16:20 [email or web address] respirations Mental status Awake,Calm 09/17/24 16:20 [email or web address] nausea No 09/17/24 16:20 PLANNER/[email or web address] Vomiting No 09/17/24 16:20 [email or web address] Anesthesia Postop Eval I: Fluid Summary Crystalloid volume administer 500 09/17/24 16:20 [email or web address] (ml) Colloids volume administered ( ml) Blood Product volume administered (ml) Total IV fluid infused 500 09/17/24 16:20 [email or web address] Anesthesia Postop Eval I: Summary Notes Anesthesia Complication No 09/17/24 16:20 [email or web address] Anesthesia Complication Comment: Post-operative progress note Anesthesia: Postop Eval II Evaluation Mental status: Awake and Calm Pain Level: 1 nausea: No Vomiting: No Complications Anesthesia Complication: No
== END 2024-09-17 17:31 | disposition home or self-care (01) ==
LOC: SDC 12:18 → AC 12:18
PROVIDERS: PCP Family Medicine; Referring Provider Obstetrics & Gynecology; Visit Provider Obstetrics & Gynecology
PROC: 0U5B8ZZ Destruction of Endometrium, Via Natural or Artificial Opening Endoscopic (ICD-10-PCS; CPT 58558; principal; 2024-09-17 14:05)
DX: D25.2 Subserosal leiomyoma of uterus (principal); N92.0 Excessive and frequent menstruation with regular cycle; N92.6 Irregular menstruation, unspecified; Z86.711 Personal history of pulmonary embolism; Z87.891 Personal history of nicotine dependence; K21.9 Gastro-esophageal reflux disease without esophagitis; N88.8 Other specified noninflammatory disorders of cervix uteri; N94.89 Other specified conditions associated with female genital organs and menstrual cycle; Z98.51 Tubal ligation status; N72 Inflammatory disease of cervix uteri; N87.9 Dysplasia of cervix uteri, unspecified; N80.9 Endometriosis, unspecified
CPT/HCPCS: 58563; 36415; 85027; 86850; 86900; 86901; 88305; J2405

== ENCOUNTER → 2025-02-25 | Outpatient (CLI) | payer OTHER, SELFPAY ==
[2025-02-28 07:07] LABS: Chlamydia By Nucleic Acid AMP Negative (Negative); Gonococcus By Nucleic Acid AMP Negative (Negative)
== END | disposition home or self-care (01) ==
LOC: LABSPEC 15:45
PROVIDERS: PCP Family Medicine; Visit Provider Nurse Practitioner Women's Health
DX: N89.8 Other specified noninflammatory disorders of vagina (principal); Z11.3 Encounter for screening for infections with a predominantly sexual mode of transmission
CPT/HCPCS: 87070; 87205; 87491; 87591